=== PATIENT | male | born 1985 | race Two or more races ===

== ENCOUNTER 2017-07-29 09:47 | Inpatient (IN) | payer OTHER ==
[2017-07-29 10:02] VITALS: BMI 17.6
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
[2017-07-29] MEDS ORDERED: ALBUTEROL SO4 2.5/IPRATROPIUM 0.5 INH SOL 3 ML VIAL.NEB. NEB SCH (10:15)
[2017-07-29] MEDS ORDERED: FUROSEMIDE 40 MG/4 ML INJECTABLE VIAL IVPUSH ONE ×2 (10:18→11:06)
[2017-07-29] MEDS ORDERED: CEFTRIAXONE 1 GM in DEXTROSE 5%-WATER - 50 ML IVPB ONE (10:18)
[2017-07-29] MEDS ORDERED: AZITHROMYCIN IVPB 500 MG in DEXTROSE 5%-WATER - 250 ML IVPB ONE (10:18)
[2017-07-29] MEDS ORDERED: FUROSEMIDE 40 MG/4 ML INJECTABLE VIAL ONE ×2 (10:44→11:56)
[2017-07-29] MEDS ORDERED: CEFTRIAXONE 50 ML ONE (10:53)
[2017-07-29 10:54] LABS: VENOUS PH 7.36 (7.32-7.42)
[2017-07-29 10:56] LABS: VENOUS BLOOD GAS HCO3 28.2 meq/L (19-25)
[2017-07-29 10:56] LABS: BASOPHIL 1.3 % (0-2.0); EOSINOPHIL 12.6 % (0-4.5); MCH 28.3 pg (25.7-33.7); MCHC 31.6 g/dl (32.0-35.9); MEAN CELL VOLUME 89.7 fl (80-96); MEAN PLT VOLUME 9.1 fl (7.5-11.1); PLATELET COUNT 132 K/MM3 (134-434); RDW 21.8 % (11.9-15.9); WHITE BLOOD COUNT 5.6 K/mm3 (4.0-10.0)
[2017-07-29] MEDS ORDERED: AZITHROMYCIN IVPB 250 ML IVPB ONE (11:04)
[2017-07-29 11:12] LABS: ALBUMIN 2.8 g/dl (3.4-5.0); ANION GAP 9 (8-16); BILIRUBIN,TOTAL 0.4 mg/dL (0.2-1.0); CALCIUM 8.4 mg/dL (8.5-10.1); CO2 28 mmol/L (21-32); CREATININE 6.4 mg/dL (0.7-1.3); GLUCOSE,RANDOM 91 mg/dL (74-106); SGOT/AST 98 U/L (15-37); SGPT/ALT 68 U/L (12-78); TOT PROT 8.5 g/dl (6.4-8.2)
[2017-07-29 11:15] LABS: ALK PHOS 102 U/L (45-117); CPK 45 IU/L (39-308); TROPONIN I < 0.02 ng/ml (0.00-0.05)
[2017-07-29] MEDS ORDERED: VANCOMYCIN 1,000 MG in DEXTROSE 5%-WATER - 250 ML IVPB ONE (11:38)
[2017-07-29] MEDS ORDERED: VANCOMYCIN 1 GRAM (PRE-DOCKED) 250 ML IVPB ONE ×2 (12:01→14:35)
[2017-07-29] MEDS ORDERED: HEPARIN NA (PORCINE) 5,000 UNITS/ML 1ML VIAL IVPUSH ONE (12:11)
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
[2017-07-29] MEDS ORDERED: ALBUTEROL SO4 0.083% IH SOL 2.5 MG/3 ML VIAL.NEB. NEB PRN (12:39)
--- NOTE | 2017-07-29 12:59 | PN ---
Progress Note, Physician Chief Complaint: ID Full note dictated Dyspneic but afebrile 96.7 - Current Medication List Current Medications: Active Medications Acetaminophen (Tylenol -) 650 mg PO Q4H PRN PRN Reason: FEVER OR PAIN Albuterol Sulfate (Ventolin 0.083% Nebulizer Soln -) 1 amp NEB Q4H PRN PRN Reason: SHORT OF BREATH/WHEEZING Albuterol/Ipratropium (Duoneb -) 1 amp NEB Q6H NIURKA Aspirin (Asa -) 81 mg PO DAILY NIURKA Carvedilol (Coreg -) 25 mg PO BID NIURKA Heparin Sodium (Porcine) (Heparin -) 3,000 unit IVPUSH ONCE ONE Stop: 07/29/17 12:12 Heparin Sodium (Porcine) (Heparin -) 5,000 unit SQ Q8H-IV NIURKA Hydralazine HCl (Apresoline -) 50 mg PO TID NIURKA Isosorbide Mononitrate (Imdur -) 30 mg PO DAILY NIURKA Scopolamine HBr (Transderm-Scop -) 1 patch TD Q72H NIURKA - Objective Vital Signs: Vital Signs Temperature 96.7 F L 07/29/17 09:58 Pulse Rate 80 07/29/17 12:46 Respiratory Rate 26 H 07/29/17 12:46 Blood Pressure 114/84 07/29/17 12:46 O2 Sat by Pulse Oximetry (%) 100 07/29/17 12:46 Constitutional: Yes: Cachectic Cardiovascular: Yes: S1, S2 Respiratory: Yes: Diminished, Rhonchi Gastrointestinal: Yes: Soft, Other (scars) Extremities: Yes: Other (avf right) Edema: No Problem List - Problems (1) Acute respiratory failure with hypoxia Code(s): J96.01 - ACUTE RESPIRATORY FAILURE WITH HYPOXIA (2) Pneumonia Code(s): J18.9 - PNEUMONIA, UNSPECIFIED ORGANISM (3) Sepsis Code(s): A41.9 - SEPSIS, UNSPECIFIED ORGANISM (4) ESRD (end stage renal disease) Code(s): N18.6 - END STAGE RENAL DISEASE Assessment/Plan Laboratory Tests 07/29/17 07/29/17 07/29/17 10:23 10:23 10:50 WBC 5.6 RBC 3.28 L Hgb 9.3 L D Plt Count 132 L D Lactic Acid 0.9 Total Protein 8.5 H Albumin 2.8 L D Assessment Presume sepsis ? Pneumonia RLL ESRD Decubiti Plan Cultures Empiric vancmoycin and Janiya May MD
[2017-07-29] MEDS ORDERED: PIPERACILLIN/TAZOB 2.25 GM 2.25 GM in DEXTROSE 5%-WATER - 50 ML IVPB ONE (13:02)
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
[2017-07-29] MEDS: hydrALAZINE HCL 50 MG TABLET (FP) PO SCH ×2 (15:00→21:52)
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
--- NOTE | 2017-07-29 15:16 | EKG ---
Test Reason : Blood Pressure : / mmHG Vent. Rate : 079 BPM Atrial Rate : 079 BPM P-R Int : 164 ms QRS Dur : 086 ms QT Int : 410 ms P-R-T Axes : 051 104 068 degrees QTc Int : 470 ms NORMAL SINUS RHYTHM POSSIBLE LEFT ATRIAL ENLARGEMENT RIGHTWARD AXIS BORDERLINE ECG WHEN COMPARED WITH ECG OF 19-DEC-2016 09:47, NO SIGNIFICANT CHANGE WAS FOUND Confirmed by DIAMOND WALKER MD ([id number]) on 07/29/2017 3:16:11 PM Referred By: Confirmed By:DIAMOND WALKER MD
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
[2017-07-29] MEDS: PIPERACILLIN/TAZOB 2.25 GM 2.25 GM in DEXTROSE 5%-WATER - 50 ML IVPB SCH ×2 (16:03→22:03)
[2017-07-29] MEDS: ALBUTEROL SO4 2.5/IPRATROPIUM 0.5 INH SOL 3 ML VIAL.NEB. NEB SCH ×2 (18:09→23:15)
[2017-07-29] MEDS: HEPARIN NA (PORCINE) 5,000 UNITS/ML 1ML VIAL SQ SCH (18:20)
[2017-07-29] MEDS: methylPREDNISolone NA SUCC 40 MG/1 ML VIAL IVPB SCH (18:26)
[2017-07-29] MEDS: SCOPOLAMINE HYDROBROMIDE 1 PATCH PATCH.TD72 TD SCH (18:29)
[2017-07-29] MEDS: CALCITRIOL 0.25 MCG CAPSULE (FP) PO SCH (20:32)
[2017-07-29] MEDS: ACETAMINOPHEN 325 MG TABLET (FP) PO PRN (20:32)
[2017-07-29] MEDS: CARVEDILOL 25 MG TABLET (FP) PO SCH (21:52)
[2017-07-29] MEDS ORDERED: PT OWN MED DRAWER 7, Y5N ONE (21:56)
[2017-07-29] MEDS ORDERED: oxyCODONE HCL 5 MG TABLET PO ONE (22:50)
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
[2017-07-30] MEDS: HEPARIN NA (PORCINE) 5,000 UNITS/ML 1ML VIAL SQ SCH ×3 (02:15→17:44)
[2017-07-30] MEDS: hydrALAZINE HCL 50 MG TABLET (FP) PO SCH ×3 (06:14→21:48)
[2017-07-30] MEDS: ALBUTEROL SO4 2.5/IPRATROPIUM 0.5 INH SOL 3 ML VIAL.NEB. NEB SCH ×4 (06:15→23:56)
[2017-07-30 06:27] LABS: BASOPHIL 0.2 % (0-2.0); EOSINOPHIL 0.4 % (0-4.5); MCH 28.9 pg (25.7-33.7); MCHC 31.9 g/dl (32.0-35.9); MEAN CELL VOLUME 90.5 fl (80-96); MEAN PLT VOLUME 10.7 fl (7.5-11.1); NEUTROPHILS 86.1 % (42.8-82.8); PLATELET COUNT 106 K/MM3 (134-434); RDW 21.5 % (11.9-15.9); WHITE BLOOD COUNT 2.8 K/mm3 (4.0-10.0)
[2017-07-30 06:49] LABS: ALBUMIN 2.8 g/dl (3.4-5.0); ANION GAP 11 (8-16); CALCIUM 8.1 mg/dL (8.5-10.1); CO2 27 mmol/L (21-32); GLUCOSE,RANDOM 130 mg/dL (74-106); MAGNESIUM 2.1 mg/dL (1.8-2.4)
[2017-07-30 06:53] LABS: ALK PHOS 105 U/L (45-117); BILIRUBIN,TOTAL 0.7 mg/dL (0.2-1.0); CREATININE 3.9 mg/dL (0.7-1.3); PHOSPHOROUS 5.3 mg/dL (2.5-4.9); SGOT/AST 106 U/L (15-37); SGPT/ALT 104 U/L (12-78); TOT PROT 8.3 g/dl (6.4-8.2)
[2017-07-30 07:16] LABS: PLATELET COMMENT2 NO CLOTTING DETECTED
[2017-07-30 07:17] LABS: ANISOCYTOSIS 2+; MACROCYTOSIS 1+; PLATELET ESTIMATE SLT DECREASED (NORMAL)
--- NOTE | 2017-07-30 07:41 | PN ---
Progress Note, Physician Chief Complaint: ID Whatever the reason he has shown a dramatic improvement since being seen in the ER yesterday. He is alert and in no distress and remains afebrile with no localizing complaints.. Empiric antibiotic with Vanco 1 dose and Zosyn day 1 offered but was unsure of any infection when seen originally. - Current Medication List Current Medications: Active Medications Acetaminophen (Tylenol -) 650 mg PO Q4H PRN PRN Reason: FEVER OR PAIN Last Admin: 07/29/17 20:32 Dose: 650 mg Albuterol Sulfate (Ventolin 0.083% Nebulizer Soln -) 1 amp NEB Q4H PRN PRN Reason: SHORT OF BREATH/WHEEZING Albuterol/Ipratropium (Duoneb -) 1 amp NEB QIDR [facility] Last Admin: 07/30/17 06:15 Dose: 1 amp Aspirin (Asa -) 81 mg PO DAILY [facility] Calcitriol (Rocaltrol -) 0.25 mcg PO TuThSa@1000 [facility] Last Admin: 07/29/17 20:32 Dose: 0.25 mcg Carvedilol (Coreg -) 25 mg PO BID [facility] Last Admin: 07/29/17 21:52 Dose: 25 mg Heparin Sodium (Porcine) (Heparin -) 5,000 unit SQ Q8H-IV [facility] Last Admin: 07/30/17 02:15 Dose: 5,000 unit Hydralazine HCl (Apresoline -) 50 mg PO TID [facility] Last Admin: 07/30/17 06:14 Dose: 50 mg Piperacillin Sod/Tazobactam (Sod 2.25 gm/ Dextrose) 50 mls @ 100 mls/hr IVPB BID [facility] PRN Reason: Protocol Last Admin: 07/29/17 22:03 Dose: 100 mls/hr Isosorbide Mononitrate (Imdur -) 30 mg PO DAILY [facility] Methylprednisolone Sodium Succinate (Solu-Medrol -) 40 mg IVPB DAILY [facility] Last Admin: 07/29/17 18:26 Dose: 40 mg Scopolamine HBr (Transderm-Scop -) 1 patch TD Q72H [facility] Last Admin: 07/29/17 18:29 Dose: 1 patch - Objective Vital Signs: Vital Signs Temperature 98 F 07/30/17 06:00 Pulse Rate 67 07/30/17 06:00 Respiratory Rate 18 07/30/17 06:00 Blood Pressure 155/84 07/30/17 06:00 O2 Sat by Pulse Oximetry (%) 100 07/30/17 06:23 Constitutional: Yes: Thin Neck: Yes: WNL, Supple Cardiovascular: Yes: WNL, Regular Rate and Rhythm, S1, S2. No: Murmur Respiratory: Yes: WNL, Regular, CTA Bilaterally, Rhonchi Gastrointestinal: Yes: WNL, Normal Bowel Sounds, Soft. No: Splenomegaly, Tenderness, Tenderness, Epigastrium Edema: No Labs: CBC, BMP 07/30/17 05:15 07/30/17 05:15 Problem List - Problems (1) Acute respiratory failure with hypoxia Code(s): J96.01 - ACUTE RESPIRATORY FAILURE WITH HYPOXIA (2) Pneumonia Code(s): J18.9 - PNEUMONIA, UNSPECIFIED ORGANISM (3) Sepsis Code(s): A41.9 - SEPSIS, UNSPECIFIED ORGANISM (4) ESRD (end stage renal disease) Code(s): N18.6 - END STAGE RENAL DISEASE Assessment/Plan Laboratory Tests 07/29/17 07/30/17 07/30/17 10:23 05:15 05:15 WBC 5.6 2.8 L D Hgb 9.1 L Hct 28.5 L Plt Count 106 L Total Bilirubin 0.7 D AST 106 H ALT 104 H D Alkaline Phosphatase 105 Total Protein 8.3 H Albumin 2.8 L Assessment Acute respiratory failure much improved ? Sepsis Taking note of low WBC and low platelets This is new and might be related to bacterial infection or viral infection ESRD Paraplegia Asthma Sacral wound decub Plan Check Vanco level this am Continue Zosyn for now Await cultures and decide need for antibiotic after complete Monospot Influenza screen Moniter CBC pancytopenia Note elevated total proteins Will do HIV test though may have been done previously ESR CRP Lalo HANNON
[2017-07-30 08:20] LABS: C-REACTIVE PROTEIN 6.4 MG/DL (0.00-0.3)
[2017-07-30 09:19] LABS: HIV 1 & 2 AB NEGATIVE; HIV 1 AGp24 NEGATIVE
[2017-07-30] MEDS ORDERED: PT OWN MED DRAWER 7, Y5N ONE (09:34)
[2017-07-30] MEDS: PIPERACILLIN/TAZOB 2.25 GM 50 ML IVPB SCH ×2 (09:42→21:48)
[2017-07-30] MEDS: methylPREDNISolone NA SUCC 40 MG/1 ML VIAL IVPB SCH (09:42)
[2017-07-30] MEDS: ISOSORBIDE MONONITRATE 30 MG TAB.SR.24H (FP) PO SCH (09:42)
[2017-07-30] MEDS: CARVEDILOL 25 MG TABLET (FP) PO SCH ×2 (09:43→21:48)
[2017-07-30] MEDS: ASPIRIN 81 MG CHEWABLE TABLETS PO SCH (09:43)
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
[2017-07-30] MEDS ORDERED: EPOETIN ALFA 2,000 UNITS/1 ML VIAL IVPUSH ONE (12:19)
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
[2017-07-30] MEDS ORDERED: HEPARIN NA (PORCINE) 5,000 UNITS/ML 1ML VIAL IVPUSH ONE (12:30)
[2017-07-30] MEDS ORDERED: EPOETIN ALFA 3,000 UNIT, EPOETIN ALFA 2,000 UNIT IVPUSH ONE (12:30)
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
[2017-07-30] MEDS: ACETAMINOPHEN 325 MG TABLET (FP) PO PRN (15:33)
[2017-07-30 15:42] LABS: FERRITIN 1864.8 ng/ml (16.4-293.9)
[2017-07-30] MEDS ORDERED: oxyCODONE HCL 5 MG TABLET PO ONE (17:31)
[2017-07-31 00:06] LABS: HEP B SURFACE AB Reactive (.)
[2017-07-31] MEDS: HEPARIN NA (PORCINE) 5,000 UNITS/ML 1ML VIAL SQ SCH ×3 (01:31→18:45)
[2017-07-31 06:10] LABS: MCH 29.3 pg (25.7-33.7); MEAN CELL VOLUME 91.4 fl (80-96); PLATELET COUNT 137 K/MM3 (134-434); WHITE BLOOD COUNT 5.1 K/mm3 (4.0-10.0)
[2017-07-31] MEDS: hydrALAZINE HCL 50 MG TABLET (FP) PO SCH ×3 (06:13→21:45)
[2017-07-31] MEDS: ALBUTEROL SO4 2.5/IPRATROPIUM 0.5 INH SOL 3 ML VIAL.NEB. NEB SCH ×4 (06:19→23:25)
[2017-07-31 06:31] LABS: ALBUMIN 2.6 g/dl (3.4-5.0); ANION GAP 12 (8-16); CALCIUM 8.2 mg/dL (8.5-10.1); CO2 30 mmol/L (21-32); GLUCOSE,RANDOM 105 mg/dL (74-106)
[2017-07-31 06:36] LABS: ALK PHOS 84 U/L (45-117); BILIRUBIN,TOTAL 0.5 mg/dL (0.2-1.0); CREATININE 3.1 mg/dL (0.7-1.3); SGOT/AST 39 U/L (15-37); SGPT/ALT 67 U/L (12-78); TOT PROT 7.4 g/dl (6.4-8.2)
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
[2017-07-31] MEDS: PIPERACILLIN/TAZOB 2.25 GM 50 ML IVPB SCH ×2 (09:33→21:45)
[2017-07-31] MEDS: ASPIRIN 81 MG CHEWABLE TABLETS PO SCH (09:34)
[2017-07-31] MEDS: methylPREDNISolone NA SUCC 40 MG/1 ML VIAL IVPB SCH (09:34)
[2017-07-31] MEDS: ISOSORBIDE MONONITRATE 30 MG TAB.SR.24H (FP) PO SCH (09:34)
[2017-07-31] MEDS: CALCITRIOL 0.25 MCG CAPSULE (FP) PO SCH (09:34)
[2017-07-31] MEDS: CARVEDILOL 25 MG TABLET (FP) PO SCH ×2 (09:34→21:45)
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
[2017-07-31] MEDS: ACETAMINOPHEN 325 MG TABLET (FP) PO PRN ×2 (11:09→14:46)
--- NOTE | 2017-07-31 12:13 | PN ---
Progress Note (short form) - Note Progress Note: esrd fluid overload anemia s/p hyperkalemia seen at bedside cough, and mild resp work to breathe Current Medications Acetaminophen (Tylenol -) 650 mg PO Q4H PRN PRN Reason: FEVER OR PAIN Last Admin: 07/31/17 11:09 Dose: 650 mg Albuterol Sulfate (Ventolin 0.083% Nebulizer Soln -) 1 amp NEB Q4H PRN PRN Reason: SHORT OF BREATH/WHEEZING Albuterol/Ipratropium (Duoneb -) 1 amp NEB QIDR [facility] Last Admin: 07/31/17 11:27 Dose: 1 amp Aspirin (Asa -) 81 mg PO DAILY [facility] Last Admin: 07/31/17 09:34 Dose: 81 mg Calcitriol (Rocaltrol -) 0.25 mcg PO TuThSa@1000 [facility] Last Admin: 07/31/17 09:34 Dose: 0.25 mcg Carvedilol (Coreg -) 25 mg PO BID [facility] Last Admin: 07/31/17 09:34 Dose: 25 mg Heparin Sodium (Porcine) (Heparin -) 5,000 unit SQ Q8H-IV NIURKA Last Admin: 07/31/17 09:34 Dose: 5,000 unit Hydralazine HCl (Apresoline -) 50 mg PO TID [facility] Last Admin: 07/31/17 06:13 Dose: 50 mg Piperacillin Sod/Tazobactam Sod (Zosyn 2.25gm Ivpb (Pre-Docked)) 50 mls @ 100 mls/hr IVPB BID NIURKA PRN Reason: Protocol Stop: 08/04/17 22:29 Last Admin: 07/31/17 09:33 Dose: 100 mls/hr Isosorbide Mononitrate (Imdur -) 30 mg PO DAILY [facility] Last Admin: 07/31/17 09:34 Dose: 30 mg Methylprednisolone Sodium Succinate (Solu-Medrol -) 40 mg IVPB DAILY [facility] Last Admin: 07/31/17 09:34 Dose: 40 mg Scopolamine HBr (Transderm-Scop -) 1 patch TD Q72H [facility] Last Admin: 07/29/17 18:29 Dose: 1 patch Last Vital Signs Temp Pulse Resp BP Pulse Ox 98.8 F 71 18 130/74 95 07/31/17 11:25 07/31/17 11:30 07/31/17 11:30 07/31/17 11:30 07/31/17 11:27 Lungs rhonchi throughout chest Heart RRR Abd soft nontender Ext no edema CBC, BMP 07/31/17 05:00 esrd resp distress- component of fluid overload, has evidence of consolidation in the right chest, no leukocytosis anemia- sharp drop in h/h, no overt blood loss follow and consider transfusion prbc prn
[2017-07-31 12:14] LABS: MCH 29.1 pg (25.7-33.7); MCHC 31.8 g/dl (32.0-35.9); MEAN CELL VOLUME 91.6 fl (80-96); MEAN PLT VOLUME 9.5 fl (7.5-11.1); PLATELET COUNT 145 K/MM3 (134-434); RDW 21.1 % (11.9-15.9); WHITE BLOOD COUNT 7.1 K/mm3 (4.0-10.0)
[2017-07-31] MEDS ORDERED: oxyCODONE HCL 5 MG TABLET PO ONE (14:18)
--- NOTE | 2017-07-31 16:26 | PN ---
Progress Note (short form) - Note Progress Note: no complaints Vital Signs Period Temp Pulse Resp BP Sys/Patino Pulse Ox Last 24 Hr 98.4 F-99.4 F 68-88 16-22 112-149/69-93 94-99 cor-rrr lungs decreased bs right base abd soft,nt CBC, BMP 07/31/17 11:40 07/31/17 05:00 Microbiology 07/29/17 11:20 Blood - Peripheral Venous Blood Culture - Preliminary NO GROWTH OBTAINED AFTER 48 HOURS, INCUBATION TO CONTINUE FOR 3 DAYS. 07/29/17 11:20 Blood - Peripheral Venous Blood Culture - Preliminary NO GROWTH OBTAINED AFTER 48 HOURS, INCUBATION TO CONTINUE FOR 3 DAYS. 07/30/17 19:00 Nasopharyngeal Swab Influenza Types A,B Antigen (KAYLIE) - Final 07/30/17 19:00 Nasopharyngeal Swab - Final a/p pneumonia RLL esrd/hd paraplegia anemia continue zosyn plan 7 days day #2
[2017-07-31 18:57] LABS: MCH 29.2 pg (25.7-33.7); MCHC 31.9 g/dl (32.0-35.9); MEAN CELL VOLUME 91.5 fl (80-96); MEAN PLT VOLUME 9.4 fl (7.5-11.1); PLATELET COUNT 150 K/MM3 (134-434); RDW 21.4 % (11.9-15.9); WHITE BLOOD COUNT 4.7 K/mm3 (4.0-10.0)
[2017-07-31 19:44] LABS: ANISOCYTOSIS 2+; MACROCYTOSIS 1+; PLATELET ESTIMATE ADEQUATE (NORMAL); POLYCHROMASIA 1+
[2017-08-01] MEDS: HEPARIN NA (PORCINE) 5,000 UNITS/ML 1ML VIAL SQ SCH ×2 (01:26→10:06)
[2017-08-01] MEDS: ALBUTEROL SO4 2.5/IPRATROPIUM 0.5 INH SOL 3 ML VIAL.NEB. NEB SCH ×3 (05:55→18:05)
[2017-08-01] MEDS: hydrALAZINE HCL 50 MG TABLET (FP) PO SCH ×3 (06:20→21:04)
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
[2017-08-01 08:26] LABS: MCH 28.8 pg (25.7-33.7); MCHC 31.2 g/dl (32.0-35.9); MEAN CELL VOLUME 92.6 fl (80-96); MEAN PLT VOLUME 9.1 fl (7.5-11.1); PLATELET COUNT 152 K/MM3 (134-434); RDW 21.7 % (11.9-15.9); WHITE BLOOD COUNT 5.9 K/mm3 (4.0-10.0)
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
[2017-08-01 09:04] LABS: ANION GAP 10 (8-16); CALCIUM 8.5 mg/dL (8.5-10.1); CO2 31 mmol/L (21-32); CREATININE 4.2 mg/dL (0.7-1.3); GLUCOSE,RANDOM 91 mg/dL (74-106)
[2017-08-01] MEDS: ISOSORBIDE MONONITRATE 30 MG TAB.SR.24H (FP) PO SCH (10:06)
[2017-08-01] MEDS: PIPERACILLIN/TAZOB 2.25 GM 50 ML IVPB SCH ×2 (10:06→21:04)
[2017-08-01] MEDS: methylPREDNISolone NA SUCC 40 MG/1 ML VIAL IVPB SCH (10:06)
[2017-08-01] MEDS: CARVEDILOL 25 MG TABLET (FP) PO SCH ×2 (10:06→21:04)
[2017-08-01 10:07] LABS: SERUM IRON 80 ug/dL (38-169); TOTAL IRON BINDING CAPACITY 180 ug/dL (250-450); UIBC 100 ug/dL (111-343)
[2017-08-01] MEDS: ASPIRIN 81 MG CHEWABLE TABLETS PO SCH (10:07)
[2017-08-01] MEDS: ACETAMINOPHEN 325 MG TABLET (FP) PO PRN ×2 (10:59→22:40)
[2017-08-01] MEDS: oxyCODONE HCL 5 MG TABLET PO PRN ×2 (10:59→22:40)
--- NOTE | 2017-08-01 14:32 | PN ---
Progress Note (short form) - Note Progress Note: esrd fluid overload anemia s/p hyperkalemia seen at bedside feels better Current Medications Acetaminophen (Tylenol -) 650 mg PO Q4H PRN PRN Reason: FEVER OR PAIN Last Admin: 08/01/17 10:59 Dose: 650 mg Albuterol Sulfate (Ventolin 0.083% Nebulizer Soln -) 1 amp NEB Q4H PRN PRN Reason: SHORT OF BREATH/WHEEZING Albuterol/Ipratropium (Duoneb -) 1 amp NEB QIDR NIURKA Last Admin: 08/01/17 11:44 Dose: 1 amp Aspirin (Asa -) 81 mg PO DAILY [facility] Last Admin: 08/01/17 10:07 Dose: 81 mg Calcitriol (Rocaltrol -) 0.25 mcg PO TuThSa@1000 [facility] Last Admin: 07/31/17 09:34 Dose: 0.25 mcg Carvedilol (Coreg -) 25 mg PO BID [facility] Last Admin: 08/01/17 10:06 Dose: 25 mg Heparin Sodium (Porcine) (Heparin -) 5,000 unit SQ Q8H-IV [facility]URKA Last Admin: 08/01/17 10:06 Dose: 5,000 unit Hydralazine HCl (Apresoline -) 50 mg PO TID [facility] Last Admin: 08/01/17 06:20 Dose: 50 mg Piperacillin Sod/Tazobactam Sod (Zosyn 2.25gm Ivpb (Pre-Docked)) 50 mls @ 100 mls/hr IVPB BID NIURKA PRN Reason: Protocol Stop: 08/04/17 22:29 Last Admin: 08/01/17 10:06 Dose: 100 mls/hr Isosorbide Mononitrate (Imdur -) 30 mg PO DAILY [facility] Last Admin: 08/01/17 10:06 Dose: 30 mg Methylprednisolone Sodium Succinate (Solu-Medrol -) 40 mg IVPB DAILY [facility] Last Admin: 08/01/17 10:06 Dose: 40 mg Oxycodone HCl (Roxicodone -) 5 mg PO Q4H PRN PRN Reason: PAIN Last Admin: 08/01/17 10:59 Dose: 5 mg Scopolamine HBr (Transderm-Scop -) 1 patch TD Q72H [facility] Last Admin: 07/29/17 18:29 Dose: 1 patch Last Vital Signs Temp Pulse Resp BP Pulse Ox 98.5 F 86 18 148/88 95 08/01/17 10:00 08/01/17 11:44 08/01/17 10:00 08/01/17 10:00 08/01/17 11:44 Lungs rhonchi throughout chest Heart RRR Abd soft nontender Ext no edema CBC, BMP 08/01/17 08:10 08/01/17 08:10 esrd s/p resp distress- component of fluid overload, has evidence of consolidation in the right chest, no leukocytosis anemia- rll pna/effusion Plan- HD on (his regula maintenance schedule)
[2017-08-01] MEDS: SCOPOLAMINE HYDROBROMIDE 1 PATCH PATCH.TD72 TD SCH (14:41)
[2017-08-01 21:14] LABS: BASOPHIL 0.5 % (0-2.0); EOSINOPHIL 0.1 % (0-4.5); MCH 29.6 pg (25.7-33.7); MCHC 32.2 g/dl (32.0-35.9); MEAN CELL VOLUME 91.9 fl (80-96); MEAN PLT VOLUME 9.6 fl (7.5-11.1); PLATELET COUNT 165 K/MM3 (134-434); RDW 21.5 % (11.9-15.9); WHITE BLOOD COUNT 5.5 K/mm3 (4.0-10.0)
[2017-08-01 21:55] LABS: ANISOCYTOSIS 2+; MACROCYTOSIS 1+; PLATELET ESTIMATE ADEQUATE (NORMAL); POLYCHROMASIA 1+
[2017-08-02] MEDS: HEPARIN NA (PORCINE) 5,000 UNITS/ML 1ML VIAL SQ SCH ×3 (01:32→17:49)
[2017-08-02] MEDS: hydrALAZINE HCL 50 MG TABLET (FP) PO SCH ×3 (05:35→21:11)
[2017-08-02 05:59] LABS: MCH 29.8 pg (25.7-33.7); MCHC 32.4 g/dl (32.0-35.9); MEAN CELL VOLUME 91.9 fl (80-96); MEAN PLT VOLUME 9.6 fl (7.5-11.1); PLATELET COUNT 165 K/MM3 (134-434); RDW 21.5 % (11.9-15.9); WHITE BLOOD COUNT 5.9 K/mm3 (4.0-10.0)
[2017-08-02 06:29] LABS: ANION GAP 12 (8-16); CALCIUM 8.1 mg/dL (8.5-10.1); CO2 29 mmol/L (21-32); CREATININE 5.4 mg/dL (0.7-1.3); GLUCOSE,RANDOM 92 mg/dL (74-106); MAGNESIUM 1.9 mg/dL (1.8-2.4); PHOSPHOROUS 4.6 mg/dL (2.5-4.9)
[2017-08-02] MEDS: ALBUTEROL SO4 2.5/IPRATROPIUM 0.5 INH SOL 3 ML VIAL.NEB. NEB SCH ×4 (06:33→17:37)
--- NOTE | 2017-08-02 07:56 | PN ---
Progress Note, Physician Chief Complaint: ID Moist couph and congestion Other then that stable NO fever Zosyn - Current Medication List Current Medications: Active Medications Acetaminophen (Tylenol -) 650 mg PO Q4H PRN PRN Reason: FEVER OR PAIN Last Admin: 08/01/17 22:40 Dose: 650 mg Albuterol Sulfate (Ventolin 0.083% Nebulizer Soln -) 1 amp NEB Q4H PRN PRN Reason: SHORT OF BREATH/WHEEZING Albuterol/Ipratropium (Duoneb -) 1 amp NEB QIDR [facility]URKA Last Admin: 08/02/17 06:33 Dose: Not Given Aspirin (Asa -) 81 mg PO DAILY [facility] Last Admin: 08/01/17 10:07 Dose: 81 mg Calcitriol (Rocaltrol -) 0.25 mcg PO TuThSa@1000 [facility] Last Admin: 07/31/17 09:34 Dose: 0.25 mcg Carvedilol (Coreg -) 25 mg PO BID [facility] Last Admin: 08/01/17 21:04 Dose: 25 mg Heparin Sodium (Porcine) (Heparin -) 5,000 unit SQ Q8H-IV [facility]URKA Last Admin: 08/02/17 01:32 Dose: 5,000 unit Hydralazine HCl (Apresoline -) 50 mg PO TID [facility] Last Admin: 08/02/17 05:35 Dose: 50 mg Piperacillin Sod/Tazobactam Sod (Zosyn 2.25gm Ivpb (Pre-Docked)) 50 mls @ 100 mls/hr IVPB BID NIURKA PRN Reason: Protocol Stop: 08/04/17 22:29 Last Admin: 08/01/17 21:04 Dose: 100 mls/hr Isosorbide Mononitrate (Imdur -) 30 mg PO DAILY [facility] Last Admin: 08/01/17 10:06 Dose: 30 mg Methylprednisolone Sodium Succinate (Solu-Medrol -) 40 mg IVPB DAILY [facility] Last Admin: 08/01/17 10:06 Dose: 40 mg Oxycodone HCl (Roxicodone -) 5 mg PO Q4H PRN PRN Reason: PAIN Last Admin: 08/01/17 22:40 Dose: 5 mg Scopolamine HBr (Transderm-Scop -) 1 patch TD Q72H [facility] Last Admin: 08/01/17 14:41 Dose: 1 patch - Objective Vital Signs: Vital Signs Temperature 98.5 F 08/02/17 06:00 Pulse Rate 70 08/02/17 06:00 Respiratory Rate 20 08/02/17 06:00 Blood Pressure 119/71 08/02/17 06:00 O2 Sat by Pulse Oximetry (%) 95 08/01/17 20:45 Constitutional: Yes: Cachectic Neck: Yes: WNL, Supple Cardiovascular: Yes: Regular Rate and Rhythm, S1, S2 Respiratory: Yes: WNL, Regular, CTA Bilaterally Gastrointestinal: Yes: WNL, Normal Bowel Sounds, Soft Edema: No Labs: CBC, BMP 08/02/17 05:00 08/02/17 05:00 Problem List - Problems (1) Acute respiratory failure with hypoxia Code(s): J96.01 - ACUTE RESPIRATORY FAILURE WITH HYPOXIA (2) Pneumonia Code(s): J18.9 - PNEUMONIA, UNSPECIFIED ORGANISM (3) Sepsis Code(s): A41.9 - SEPSIS, UNSPECIFIED ORGANISM (4) ESRD (end stage renal disease) Code(s): N18.6 - END STAGE RENAL DISEASE Assessment/Plan Microbiology 07/30/17 19:00 Nasopharyngeal Swab Influenza Types A,B Antigen (KAYLIE) - Final 07/30/17 19:00 Nasopharyngeal Swab - Final 07/29/17 11:20 Blood - Peripheral Venous Blood Culture - Preliminary NO GROWTH OBTAINED AFTER 72 HOURS, INCUBATION TO CONTINUE FOR 2 DAYS. 07/29/17 11:20 Blood - Peripheral Venous Blood Culture - Preliminary NO GROWTH OBTAINED AFTER 72 HOURS, INCUBATION TO CONTINUE FOR 2 DAYS. Laboratory Tests 07/30/17 08/02/17 08:30 05:00 WBC 5.9 Hgb 8.8 L Hct 27.2 L Plt Count 165 HIV 1&2 Antibody Screen Negative Assessment Sepsis resolved PNA effusion ESRD Paraplegia Plan Patient had rapid improvement overnight with antibiotics Switch po Levofloxacin 250 q [address] chest Lalo HANNON
[2017-08-02] MEDS ORDERED: LEVOFLOXACIN 250 MG TABLET (FP) PO SCH (09:00)
[2017-08-02] MEDS ORDERED: PT OWN MED DRAWER 7, Y5N ONE (09:06)
[2017-08-02] MEDS: ASPIRIN 81 MG CHEWABLE TABLETS PO SCH (09:08)
[2017-08-02] MEDS: methylPREDNISolone NA SUCC 40 MG/1 ML VIAL IVPB SCH (09:09)
[2017-08-02] MEDS: CARVEDILOL 25 MG TABLET (FP) PO SCH ×2 (09:09→21:11)
[2017-08-02] MEDS: ISOSORBIDE MONONITRATE 30 MG TAB.SR.24H (FP) PO SCH (09:09)
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
[2017-08-02] MEDS: oxyCODONE HCL 5 MG TABLET PO PRN (20:40)
[2017-08-02] MEDS: ACETAMINOPHEN 325 MG TABLET (FP) PO PRN (20:41)
[2017-08-03] MEDS: ALBUTEROL SO4 2.5/IPRATROPIUM 0.5 INH SOL 3 ML VIAL.NEB. NEB SCH ×4 (00:46→17:10)
[2017-08-03] MEDS: HEPARIN NA (PORCINE) 5,000 UNITS/ML 1ML VIAL SQ SCH ×4 (02:00→19:00)
[2017-08-03] MEDS: hydrALAZINE HCL 50 MG TABLET (FP) PO SCH ×2 (05:21→15:18)
[2017-08-03 06:27] LABS: MCHC 32.4 g/dl (32.0-35.9); MEAN CELL VOLUME 92.6 fl (80-96); MEAN PLT VOLUME 9.6 fl (7.5-11.1); PLATELET COUNT 174 K/MM3 (134-434); RDW 21.6 % (11.9-15.9); WHITE BLOOD COUNT 5.9 K/mm3 (4.0-10.0)
[2017-08-03 06:55] LABS: ALBUMIN 2.8 g/dl (3.4-5.0); ANION GAP 13 (8-16); CALCIUM 7.6 mg/dL (8.5-10.1); CO2 27 mmol/L (21-32); CREATININE 6.7 mg/dL (0.7-1.3); GLUCOSE,RANDOM 98 mg/dL (74-106); MAGNESIUM 2.1 mg/dL (1.8-2.4); PHOSPHOROUS 5.7 mg/dL (2.5-4.9)
[2017-08-03] MEDS: ASPIRIN 81 MG CHEWABLE TABLETS PO SCH (10:05)
[2017-08-03] MEDS: CALCITRIOL 0.25 MCG CAPSULE (FP) PO SCH (10:05)
[2017-08-03] MEDS: methylPREDNISolone NA SUCC 40 MG/1 ML VIAL IVPB SCH (10:06)
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
[2017-08-03] MEDS ORDERED: EPOETIN ALFA 3,000 UNIT, EPOETIN ALFA 2,000 UNIT IVPUSH ONE (13:15)
[2017-08-03] MEDS ORDERED: HEPARIN NA (PORCINE) 5,000 UNITS/ML 1ML VIAL IVPUSH ONE (13:23)
[2017-08-03] MEDS ORDERED: EPOETIN ALFA 2,000 UNITS/1 ML VIAL IVPUSH ONE (13:23)
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
[2017-08-03] MEDS: CARVEDILOL 25 MG TABLET (FP) PO SCH (15:17)
[2017-08-03] MEDS: ISOSORBIDE MONONITRATE 30 MG TAB.SR.24H (FP) PO SCH (15:17)
[2017-08-03 15:40] LABS: CREATININE 2.1 mg/dL (0.7-1.3)
[2017-08-03 15:48] VITALS: TEMP 99.3
[2017-08-03] MEDS: oxyCODONE HCL 5 MG TABLET PO PRN (17:13)
[2017-08-03] MEDS: ACETAMINOPHEN 325 MG TABLET (FP) PO PRN (17:14)
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
[2017-08-03 20:50] VITALS: BP 136/75; PULSE 75
[2017-08-11 09:19] LABS: CALCIUM 8.3
== END 2017-08-03 20:55 | disposition home or self-care (01) | DRG 133 ==
LOC: JER 09:47 → JERBED 11:45 → J2W 17:15
PROVIDERS: ADMIT Internal Medicine; ATTEND Internal Medicine
PROC: 5A1D60Z (ICD-10-PCS; principal; 2017-07-29)
PROC: 5A0955Z Assistance with Respiratory Ventilation, Greater than 96 Consecutive Hours (ICD-10-PCS; 2017-07-29)
DX: J96.01 Acute respiratory failure with hypoxia (principal); D64.9 Anemia, unspecified; J45.909 Unspecified asthma, uncomplicated; E78.00 Pure hypercholesterolemia, unspecified; G82.20 Paraplegia, unspecified; R06.82 Tachypnea, not elsewhere classified; R68.0 Hypothermia, not associated with low environmental temperature; N20.0 Calculus of kidney; J90 Pleural effusion, not elsewhere classified; E87.5 Hyperkalemia; G62.9 Polyneuropathy, unspecified; J98.6 Disorders of diaphragm; J18.9 Pneumonia, unspecified organism; E87.70 Fluid overload, unspecified; D62 Acute posthemorrhagic anemia; D63.1 Anemia in chronic kidney disease; I27.2 Other secondary pulmonary hypertension; L89.312 Pressure ulcer of right buttock, stage 2; R74.0 Nonspecific elevation of levels of transaminase and lactic acid dehydrogenase [LDH]; I13.2 Hypertensive heart and chronic kidney disease with heart failure and with stage 5 chronic kidney disease, or end stage renal disease; I50.21 Acute systolic (congestive) heart failure; D61.818 Other pancytopenia; Z87.828 Personal history of other (healed) physical injury and trauma; Z90.5 Acquired absence of kidney; Z99.2 Dependence on renal dialysis; Z87.891 Personal history of nicotine dependence
CPT/HCPCS: 36415; 71010-TC; 80048; 80053; 82040; 82310; 82565; 82728; 82803; 83540; 83550; 83605; 83735; 83880; 83970; 84100; 84466; 84484; 84520; 85025; 85027; 85651; 86140; 86308; 86704; 86706; 86708; 86803; 86850; 86900; 86901; 87040; 87070; 87205; 87340; 87389; 87804; 93005; 93010; 94640; 94660; 97161-GP; 99284-25; G0480; J0885; J1644

== ENCOUNTER 2017-08-23 21:07 | Inpatient (IN) | payer OTHER ==
[2017-08-23] MEDS ORDERED: ALBUTEROL SO4 2.5/IPRATROPIUM 0.5 INH SOL 3 ML VIAL.NEB. NEB ONE ×2 (21:22→21:26)
[2017-08-23 21:23] VITALS: BMI 17.1
[2017-08-23 21:54] LABS: BASOPHIL 0.7 % (0-2.0); EOSINOPHIL 6.2 % (0-4.5); MCH 30.3 pg (25.7-33.7); MEAN CELL VOLUME 94.9 fl (80-96); MEAN PLT VOLUME 9.1 fl (7.5-11.1); NEUTROPHILS 77.1 % (42.8-82.8); PLATELET COUNT 116 K/MM3 (134-434); RDW 21.1 % (11.9-15.9); WHITE BLOOD COUNT 7.5 K/mm3 (4.0-10.0)
[2017-08-23 22:14] LABS: INR 1.14 (0.82-1.09); PROTHROMBIN TIME (PATIENT) 12.5 SEC (9.98-11.88)
[2017-08-23 22:42] LABS: ALBUMIN 3.2 g/dl (3.4-5.0); ALK PHOS 96 U/L (45-117); ANION GAP 12 (8-16); BILIRUBIN,TOTAL 0.4 mg/dL (0.2-1.0); CALCIUM 8.7 mg/dL (8.5-10.1); CO2 27 mmol/L (21-32); CREATININE 7.3 mg/dL (0.7-1.3); GLUCOSE,RANDOM 84 mg/dL (74-106); SGOT/AST 41 U/L (15-37); SGPT/ALT 99 U/L (12-78); TOT PROT 7.5 g/dl (6.4-8.2)
[2017-08-23 22:46] LABS: PLATELET ESTIMATE DECREASED (NORMAL)
[2017-08-23 22:47] LABS: ANISOCYTOSIS 2+; HYPOCHROMIA 1+
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
[2017-08-24] MEDS: HEPARIN NA (PORCINE) 5,000 UNITS/ML 1ML VIAL SQ SCH ×3 (02:44→17:58)
[2017-08-24] MEDS: hydrALAZINE HCL 50 MG TABLET (FP) PO SCH ×3 (05:21→21:23)
[2017-08-24] MEDS ORDERED: VANCOMYCIN 1 GRAM (PRE-DOCKED) 1,000 MG/250 ML BAG IVPB ONE (05:53)
[2017-08-24 06:12] LABS: BASOPHIL 0.4 % (0-2.0); EOSINOPHIL 4.8 % (0-4.5); MCH 30.9 pg (25.7-33.7); MCHC 32.2 g/dl (32.0-35.9); MEAN PLT VOLUME 9.2 fl (7.5-11.1); NEUTROPHILS 82.6 % (42.8-82.8); PLATELET COUNT 141 K/MM3 (134-434); WHITE BLOOD COUNT 7.1 K/mm3 (4.0-10.0)
[2017-08-24] MEDS ORDERED: VANCOMYCIN 1,000 MG in DEXTROSE 5%-WATER - 250 ML IVPB ONE (06:15)
[2017-08-24 06:40] LABS: ALBUMIN 3.3 g/dl (3.4-5.0); ANION GAP 13 (8-16); CALCIUM 8.6 mg/dL (8.5-10.1); CO2 29 mmol/L (21-32); GLUCOSE,RANDOM 81 mg/dL (74-106); SGOT/AST 36 U/L (15-37); SGPT/ALT 92 U/L (12-78)
[2017-08-24 06:42] LABS: ALK PHOS 96 U/L (45-117); BILIRUBIN,TOTAL 0.6 mg/dL (0.2-1.0); TOT PROT 7.5 g/dl (6.4-8.2)
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
[2017-08-24] MEDS ORDERED: PIPERACILLIN/TAZOB 3.375 GM/50 ML PRE-DOCKED IVPB SCH (10:00)
[2017-08-24] MEDS ORDERED: PIPERACILLIN/TAZOB 3.375 GM/50 ML PRE-DOCKED IVPB ONE (10:10)
[2017-08-24] MEDS: ISOSORBIDE MONONITRATE 30 MG TAB.SR.24H (FP) PO SCH (10:12)
[2017-08-24] MEDS: CARVEDILOL 25 MG TABLET (FP) PO SCH ×2 (10:12→21:23)
[2017-08-24] MEDS: MUPIROCIN 2% TOPICAL OINTMENT FOR DECOLONIZATION NS SCH ×2 (10:13→21:24)
[2017-08-24] MEDS: ACETAMINOPHEN 325 MG TABLET (FP) PO PRN ×2 (10:25→17:57)
[2017-08-24] MEDS: oxyCODONE HCL 5 MG TABLET PO PRN ×2 (10:26→17:57)
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
--- NOTE | 2017-08-24 16:06 | PN ---
Progress Note (short form) - Note Progress Note: ID Consult dictated RLL HCAP ? Parapneumonic effusion ESRD Pending cultures empiric zosyn/ vancomycin, adjusted for ESRD
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
--- NOTE | 2017-08-24 17:13 | CONS ---
INFECTIOUS DISEASE CONSULTATION DATE OF CONSULTATION: DATE OF DICTATION: 08/24/2017 HISTORY OF PRESENT ILLNESS: The patient is a 32-year-old male with history of paraplegia, end-stage renal disease on hemodialysis, evaluated for pneumonia. The patient was recently hospitalized at [facility] after presenting with shortness of breath. At that time, he was found to have a right lower lobe infiltrate. He was empirically treated with Zosyn and has been switched over to Levaquin. He now returns with recurrent shortness of breath over the past 2 days. A chest x-ray shows a dense consolidation in the right lower lobe. He was admitted to the ICU. His course was complicated by fever. He was empirically treated with vancomycin and Zosyn. A bedside sonogram was performed with a towards thoracentesis. However, an insufficient amount of pleural fluid was noted. The thoracentesis was not performed. He denies any pleuritic-type chest pain. He denies any hemoptysis. PAST MEDICAL HISTORY: Positive for end-stage renal disease on hemodialysis, paraplegia. ALLERGIES: No known allergies. SURGERIES: Status post fistula and nephrectomy. MEDICATIONS: Include Tylenol, Coreg, Apresoline, Imdur, Ecotrin. SOCIAL HISTORY: He resides in the community. He is a nonsmoker. HIV test performed last month was negative. LABORATORY DATA: White count is 7.1, hematocrit 34.4, platelet count 141. BUN 33, creatinine 5.0. Cultures are pending. PHYSICAL EXAMINATION: General: He is awake and alert. He is mildly dyspneic on Ventimask. Vital Signs: Temperature 101.1, T-max 101.5. Blood pressure 97/55; pulse 82, regular; respirations 20 per minute. HEENT: Sclerae anicteric. Heart: Sounds S1, S2. Lungs: Rhonchi at the bases bilaterally with some crepitations at the [id number]-right base. Abdomen: Soft, with a large healed surgical scar, midline. Extremities: Negative for edema. Positive paraplegia. IMPRESSION: 1. Healthcare-acquired right lower lobe pneumonia. 2. Possible sepsis secondary to pneumonia. 3. End-stage renal disease on hemodialysis. PLAN: Obtain CAT scan of the chest, sputum culture. Would consider diagnostic/therapy thoracentesis if significant amount of pleural fluid present. Empiric antibiotic coverage for healthcare-acquired pneumonia with vancomycin and Zosyn adjusted for renal failure. ICU monitoring. Will follow. Thank you for the kind referral. KACIE RYAN M.D. [id number]
[2017-08-24] MEDS: PIPERACILLIN/TAZOB 2.25 GM 50 ML IVPB SCH (17:56)
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
[2017-08-24] MEDS: CHLORHEXIDINE GLUCONATE 4% CLEANSER FOR DECOLONIZATION TP SCH (21:25)
[2017-08-25] MEDS: HEPARIN NA (PORCINE) 5,000 UNITS/ML 1ML VIAL SQ SCH ×3 (01:24→17:38)
[2017-08-25] MEDS: PIPERACILLIN/TAZOB 2.25 GM 50 ML IVPB SCH ×3 (01:24→17:39)
[2017-08-25 06:14] LABS: MCH 30.7 pg (25.7-33.7); MCHC 31.5 g/dl (32.0-35.9); MEAN CELL VOLUME 97.5 fl (80-96); MEAN PLT VOLUME 9.3 fl (7.5-11.1); PLATELET COUNT 117 K/MM3 (134-434); RDW 21.3 % (11.9-15.9); WHITE BLOOD COUNT 5.9 K/mm3 (4.0-10.0)
[2017-08-25] MEDS: hydrALAZINE HCL 50 MG TABLET (FP) PO SCH ×3 (06:22→21:25)
[2017-08-25 06:50] LABS: ANION GAP 9 (8-16); CALCIUM 8.1 mg/dL (8.5-10.1); CO2 32 mmol/L (21-32); CREATININE 6.7 mg/dL (0.7-1.3); GLUCOSE,RANDOM 82 mg/dL (74-106); MAGNESIUM 2.5 mg/dL (1.8-2.4); PHOSPHOROUS 6.3 mg/dL (2.5-4.9)
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
[2017-08-25] MEDS: ALBUTEROL SO4 2.5/IPRATROPIUM 0.5 INH SOL 3 ML VIAL.NEB. NEB PRN ×2 (09:24→17:27)
[2017-08-25] MEDS: MUPIROCIN 2% TOPICAL OINTMENT FOR DECOLONIZATION NS SCH ×2 (09:44→21:18)
[2017-08-25] MEDS: CARVEDILOL 25 MG TABLET (FP) PO SCH ×2 (10:00→21:18)
[2017-08-25] MEDS ORDERED: EPOETIN ALFA 2,000 UNITS/1 ML VIAL IVPUSH ONE (10:30)
--- NOTE | 2017-08-25 10:44 | PN ---
Progress Note, Physician History of Present Illness: Awake, alert Appears more comfortable today Mildly dyspneic on VM Temps down afebrile Receiving hemodialysis CT findings noted - Current Medication List Current Medications: Active Medications Acetaminophen (Tylenol -) 325 mg PO Q4H PRN PRN Reason: PAIN Stop: 08/27/17 10:16 Last Admin: 08/24/17 17:57 Dose: 325 mg Albuterol/Ipratropium (Duoneb -) 1 amp NEB Q6H PRN PRN Reason: SHORTNESS OF BREATH Last Admin: 08/25/17 09:24 Dose: 1 amp Aspirin (Ecotrin -) 81 mg PO DAILY [facility] Carvedilol (Coreg -) 25 mg PO BID [facility] Last Admin: 08/24/17 21:23 Dose: 25 mg Chlorhexidine Gluconate (Hibiclens For Decolonization -) 1 applic TP HS [facility] Last Admin: 08/24/17 21:25 Dose: 1 applic Heparin Sodium (Porcine) (Heparin -) 5,000 unit SQ Q8H-IV [facility] Last Admin: 08/25/17 09:55 Dose: 5,000 unit Hydralazine HCl (Apresoline -) 50 mg PO TID [facility] Last Admin: 08/25/17 06:22 Dose: Not Given Piperacillin Sod/Tazobactam Sod (Zosyn 2.25gm Ivpb (Pre-Docked)) 50 mls @ 100 mls/hr IVPB Q8H-IV [facility] PRN Reason: Protocol Last Admin: 08/25/17 09:43 Dose: 100 mls/hr Isosorbide Mononitrate (Imdur -) 30 mg PO DAILY [facility] Last Admin: 08/24/17 10:12 Dose: 30 mg Mupirocin (Bactroban Ointment (For Decolonization) -) 1 applic NS BID [facility] Stop: 08/29/17 09:59 Last Admin: 08/25/17 09:44 Dose: 1 applic Oxycodone HCl (Roxicodone -) 5 mg PO Q4H PRN PRN Reason: PAIN Last Admin: 08/24/17 17:57 Dose: 5 mg - Objective Vital Signs: Vital Signs Temperature 98.0 F 08/25/17 10:00 Pulse Rate 70 08/25/17 10:20 Respiratory Rate 18 08/25/17 10:20 Blood Pressure 100/57 10/11/17 10:20 O2 Sat by Pulse Oximetry (%) 95 08/25/17 08:00 Constitutional: Yes: No Distress, Cachectic Eyes: Yes: Conjunctiva Clear Cardiovascular: Yes: Regular Rate and Rhythm, S1, S2 Respiratory: Yes: Diminished Gastrointestinal: Yes: Normal Bowel Sounds, Soft. No: Tenderness Edema: No Labs: CBC, BMP 08/25/17 05:00 08/25/17 05:00 INR, PTT INR 1.14 (0.82-1.09) 08/23/17 21:40 Assessment/Plan HCAP ESRD Paraplegia Await c/s Continue zosyn Vancomycin level theraputic
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
[2017-08-25] MEDS: ACETAMINOPHEN 325 MG TABLET (FP) PO PRN ×2 (13:41→21:24)
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
[2017-08-25] MEDS: oxyCODONE HCL 5 MG TABLET PO PRN ×2 (13:42→21:23)
[2017-08-25] MEDS: ASPIRIN COATED 81 MG TABLET.EC PO SCH (15:30)
[2017-08-25] MEDS: ISOSORBIDE MONONITRATE 30 MG TAB.SR.24H (FP) PO SCH (15:30)
[2017-08-25] MEDS ORDERED: ACETAMINOPHEN 325 MG TABLET (FP) PO ONE (15:34)
[2017-08-25] MEDS: CHLORHEXIDINE GLUCONATE 4% CLEANSER FOR DECOLONIZATION TP SCH (21:18)
[2017-08-26] MEDS: PIPERACILLIN/TAZOB 2.25 GM 50 ML IVPB SCH ×3 (02:48→17:33)
[2017-08-26] MEDS: HEPARIN NA (PORCINE) 5,000 UNITS/ML 1ML VIAL SQ SCH ×3 (02:48→17:41)
[2017-08-26 06:07] LABS: BASOPHIL 0.7 % (0-2.0); EOSINOPHIL 10.5 % (0-4.5); MCHC 31.8 g/dl (32.0-35.9); MEAN CELL VOLUME 97.5 fl (80-96); NEUTROPHILS 66.9 % (42.8-82.8); RDW 20.6 % (11.9-15.9); WHITE BLOOD COUNT 5.9 K/mm3 (4.0-10.0)
[2017-08-26] MEDS: ALBUTEROL SO4 2.5/IPRATROPIUM 0.5 INH SOL 3 ML VIAL.NEB. NEB PRN ×2 (06:35→11:15)
[2017-08-26] MEDS: hydrALAZINE HCL 50 MG TABLET (FP) PO SCH ×3 (06:37→21:03)
[2017-08-26 06:38] LABS: ALBUMIN 2.8 g/dl (3.4-5.0); ALK PHOS 86 U/L (45-117); ANION GAP 10 (8-16); BILIRUBIN,TOTAL 0.5 mg/dL (0.2-1.0); CALCIUM 7.9 mg/dL (8.5-10.1); CO2 34 mmol/L (21-32); CREATININE 4.3 mg/dL (0.7-1.3); GLUCOSE,RANDOM 91 mg/dL (74-106); PHOSPHOROUS 4.4 mg/dL (2.5-4.9); SGPT/ALT 51 U/L (12-78); TOT PROT 7.2 g/dl (6.4-8.2)
[2017-08-26 06:59] LABS: MAGNESIUM 2.3 mg/dL (1.8-2.4); SGOT/AST 31 U/L (15-37)
[2017-08-26 08:19] LABS: MEAN PLT VOLUME 9.8 fl (7.5-11.1); PLATELET COMMENT2 FEW LARGE PLTS; PLATELET COUNT 96 K/MM3 (134-434); PLATELET ESTIMATE DECREASED (NORMAL)
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
[2017-08-26] MEDS: oxyCODONE HCL 5 MG TABLET PO PRN ×2 (09:26→23:26)
[2017-08-26] MEDS: ACETAMINOPHEN 325 MG TABLET (FP) PO PRN (09:27)
[2017-08-26] MEDS: ISOSORBIDE MONONITRATE 30 MG TAB.SR.24H (FP) PO SCH (09:29)
[2017-08-26] MEDS: ASPIRIN COATED 81 MG TABLET.EC PO SCH (09:29)
[2017-08-26] MEDS: CARVEDILOL 25 MG TABLET (FP) PO SCH ×2 (09:29→21:03)
[2017-08-26] MEDS: MUPIROCIN 2% TOPICAL OINTMENT FOR DECOLONIZATION NS SCH ×2 (09:31→21:05)
[2017-08-26] MEDS ORDERED: BACITRACIN 15 GM TUBE TOPICAL OINTMENT TP ONE (10:00)
[2017-08-26] MEDS ORDERED: ALBUTEROL SO4 0.083% IH SOL 2.5 MG/3 ML VIAL.NEB. NEB PRN (11:50)
[2017-08-26] MEDS ORDERED: ACETYLCYSTEINE 20% 200MG/ML 30 ML VIAL *FOR ORAL / INH USE ONLY NEB SCH ×2 (12:00→14:00)
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
[2017-08-26] MEDS ORDERED: ACETYLCYSTEINE 20% 200MG/ML 4 ML VIAL *FOR ORAL / INH USE ONLY ONE (14:05)
[2017-08-26] MEDS: ALBUTEROL SO4 0.083% IH SOL 2.5 MG/3 ML VIAL.NEB. NEB SCH ×3 (14:10→22:10)
--- NOTE | 2017-08-26 16:11 | PN ---
Progress Note, Physician History of Present Illness: Awake, alert Less dyspneic Less cough, sputum clearer Low grade temp Appears comfortable on nasal cannula - Current Medication List Current Medications: Active Medications Acetaminophen (Tylenol -) 325 mg PO Q4H PRN PRN Reason: PAIN Stop: 08/27/17 10:16 Last Admin: 08/26/17 09:27 Dose: 325 mg Acetylcysteine (Mucomyst 20 Oral / Inh Use Only*) 200 mg NEB QID [facility] Albuterol Sulfate (Ventolin 0.083% Nebulizer Soln -) 1 amp NEB QID [facility] Last Admin: 08/26/17 14:10 Dose: 1 amp Albuterol/Ipratropium (Duoneb -) 1 amp NEB Q6H PRN PRN Reason: SHORTNESS OF BREATH Last Admin: 08/26/17 11:15 Dose: 1 amp Aspirin (Ecotrin -) 81 mg PO DAILY [facility] Last Admin: 08/26/17 09:29 Dose: 81 mg Carvedilol (Coreg -) 25 mg PO BID [facility] Last Admin: 08/26/17 09:29 Dose: 25 mg Chlorhexidine Gluconate (Hibiclens For Decolonization -) 1 applic TP HS [facility] Last Admin: 08/25/17 21:18 Dose: 1 applic Heparin Sodium (Porcine) (Heparin -) 5,000 unit SQ Q8H-IV [facility] Last Admin: 08/26/17 09:29 Dose: 5,000 unit Hydralazine HCl (Apresoline -) 50 mg PO TID [facility] Last Admin: 08/26/17 13:34 Dose: Not Given Piperacillin Sod/Tazobactam Sod (Zosyn 2.25gm Ivpb (Pre-Docked)) 50 mls @ 100 mls/hr IVPB Q8H-IV [facility] PRN Reason: Protocol Last Admin: 08/26/17 09:29 Dose: 100 mls/hr Isosorbide Mononitrate (Imdur -) 30 mg PO DAILY [facility] Last Admin: 08/26/17 09:29 Dose: 30 mg Mupirocin (Bactroban Ointment (For Decolonization) -) 1 applic NS BID [facility] Stop: 08/29/17 09:59 Last Admin: 08/26/17 09:31 Dose: 1 applic Oxycodone HCl (Roxicodone -) 5 mg PO Q4H PRN PRN Reason: PAIN Last Admin: 08/26/17 09:26 Dose: 5 mg - Objective Vital Signs: Vital Signs Temperature 98.7 F 08/26/17 14:00 Pulse Rate 66 08/26/17 14:00 Respiratory Rate 23 08/26/17 14:00 Blood Pressure 92/50 08/26/17 14:00 O2 Sat by Pulse Oximetry (%) 100 08/26/17 10:12 Constitutional: Yes: No Distress Eyes: Yes: Conjunctiva Clear Cardiovascular: Yes: Regular Rate and Rhythm, S1, S2 Respiratory: Yes: Other (crepitations R base; bilateral rhonchi) Gastrointestinal: Yes: Normal Bowel Sounds, Soft. No: Tenderness Edema: No Labs: CBC, BMP 08/26/17 05:00 08/26/17 05:00 INR, PTT INR 1.14 (0.82-1.09) 08/23/17 21:40 Assessment/Plan HCAP ESRD Paraplegia Await c/s Continue zosyn
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
[2017-08-26] MEDS: ACETYLCYSTEINE 20% 200MG/ML 4 ML VIAL *FOR ORAL / INH USE ONLY NEB SCH ×2 (17:43→22:09)
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
[2017-08-26] MEDS: CHLORHEXIDINE GLUCONATE 4% CLEANSER FOR DECOLONIZATION TP SCH (21:06)
[2017-08-27] MEDS: PIPERACILLIN/TAZOB 2.25 GM 50 ML IVPB SCH ×3 (01:35→17:36)
[2017-08-27] MEDS: HEPARIN NA (PORCINE) 5,000 UNITS/ML 1ML VIAL SQ SCH ×4 (01:35→21:53)
[2017-08-27 06:09] LABS: BASOPHIL 0.6 % (0-2.0); EOSINOPHIL 12.2 % (0-4.5); MCH 31.2 pg (25.7-33.7); MCHC 32.3 g/dl (32.0-35.9); MEAN CELL VOLUME 96.9 fl (80-96); MEAN PLT VOLUME 9.6 fl (7.5-11.1); NEUTROPHILS 62.3 % (42.8-82.8); PLATELET COUNT 133 K/MM3 (134-434); WHITE BLOOD COUNT 5.8 K/mm3 (4.0-10.0)
[2017-08-27] MEDS: ALBUTEROL SO4 2.5/IPRATROPIUM 0.5 INH SOL 3 ML VIAL.NEB. NEB PRN (06:30)
[2017-08-27 06:32] LABS: ALBUMIN 2.7 g/dl (3.4-5.0); ALK PHOS 73 U/L (45-117); ANION GAP 7 (8-16); BILIRUBIN,TOTAL 0.4 mg/dL (0.2-1.0); CALCIUM 7.7 mg/dL (8.5-10.1); CO2 33 mmol/L (21-32); CREATININE 6.5 mg/dL (0.7-1.3); GLUCOSE,RANDOM 81 mg/dL (74-106); MAGNESIUM 2.4 mg/dL (1.8-2.4); SGOT/AST 21 U/L (15-37); SGPT/ALT 39 U/L (12-78); TOT PROT 6.8 g/dl (6.4-8.2)
[2017-08-27] MEDS: oxyCODONE HCL 5 MG TABLET PO PRN ×3 (06:48→20:24)
[2017-08-27] MEDS: hydrALAZINE HCL 50 MG TABLET (FP) PO SCH ×2 (06:49→21:53)
[2017-08-27] MEDS ORDERED: EPOETIN ALFA 2,000 UNITS/1 ML VIAL IVPUSH ONE (08:30)
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
--- NOTE | 2017-08-27 08:47 | PN ---
Progress Note, Physician History of Present Illness: Clinically improved Awake, alert No complaints Denies chest pain/ dyspnea/ cough No c/o fever/ chills + Low grade temp WBC WNL CXR better aeration R apex Sputum normal damaris - Current Medication List Current Medications: Active Medications Acetaminophen (Tylenol -) 325 mg PO Q4H PRN PRN Reason: PAIN Stop: 08/27/17 10:16 Last Admin: 08/26/17 09:27 Dose: 325 mg Acetylcysteine (Mucomyst 20 Oral / Inh Use Only*) 200 mg NEB QID [facility] Last Admin: 08/26/17 22:09 Dose: 200 mg Albuterol Sulfate (Ventolin 0.083% Nebulizer Soln -) 1 amp NEB QID [facility] Last Admin: 08/26/17 22:10 Dose: 1 amp Albuterol/Ipratropium (Duoneb -) 1 amp NEB Q6H PRN PRN Reason: SHORTNESS OF BREATH Last Admin: 08/27/17 06:30 Dose: 1 amp Aspirin (Ecotrin -) 81 mg PO DAILY [facility] Last Admin: 08/26/17 09:29 Dose: 81 mg Carvedilol (Coreg -) 25 mg PO BID [facility] Last Admin: 08/26/17 21:03 Dose: 25 mg Chlorhexidine Gluconate (Hibiclens For Decolonization -) 1 applic TP HS [facility] Last Admin: 08/26/17 21:06 Dose: 1 applic Heparin Sodium (Porcine) (Heparin -) 5,000 unit SQ Q8H-IV [facility] Last Admin: 08/27/17 01:35 Dose: 5,000 unit Heparin Sodium (Porcine) (Heparin -) 1,000 unit IVPUSH ONCE ONE Stop: 08/27/17 10:01 Hydralazine HCl (Apresoline -) 50 mg PO TID [facility] Last Admin: 08/27/17 06:49 Dose: Not Given Piperacillin Sod/Tazobactam Sod (Zosyn 2.25gm Ivpb (Pre-Docked)) 50 mls @ 100 mls/hr IVPB Q8H-IV [facility]KA PRN Reason: Protocol Last Admin: 08/27/17 01:35 Dose: 100 mls/hr Isosorbide Mononitrate (Imdur -) 30 mg PO DAILY [facility] Last Admin: 08/26/17 09:29 Dose: 30 mg Mupirocin (Bactroban Ointment (For Decolonization) -) 1 applic NS BID [facility] Stop: 08/29/17 09:59 Last Admin: 08/26/17 21:05 Dose: 1 applic Oxycodone HCl (Roxicodone -) 5 mg PO Q4H PRN PRN Reason: PAIN Last Admin: 08/27/17 06:48 Dose: 5 mg - Objective Vital Signs: Vital Signs Temperature 97.8 F 08/27/17 06:55 Pulse Rate 75 08/27/17 07:30 Respiratory Rate 18 08/27/17 07:30 Blood Pressure 90/52 08/27/17 07:30 O2 Sat by Pulse Oximetry (%) 99 08/26/17 22:02 Constitutional: Yes: No Distress, Cachectic Cardiovascular: Yes: Regular Rate and Rhythm, S1, S2 Respiratory: Yes: Other (+ crepitations R base, rhonchi L lung field) Gastrointestinal: Yes: Normal Bowel Sounds, Soft. No: Tenderness Edema: No Labs: CBC, BMP 08/27/17 05:55 08/27/17 05:55 INR, PTT INR 1.14 (0.82-1.09) 08/23/17 21:40 Assessment/Plan HCAP/ Atelectasis ESRD Paraplegia Continue zosyn Bronchodilators, mucomyst
[2017-08-27] MEDS ORDERED: PT OWN MED DRAWER 7, Y5N ONE ×2 (08:54→10:44)
[2017-08-27] MEDS ORDERED: HEPARIN NA (PORCINE) 5,000 UNITS/ML 1ML VIAL IVPUSH ONE (10:00)
[2017-08-27] MEDS: ALBUTEROL SO4 0.083% IH SOL 2.5 MG/3 ML VIAL.NEB. NEB SCH ×4 (10:35→23:59)
[2017-08-27] MEDS: ACETYLCYSTEINE 20% 200MG/ML 4 ML VIAL *FOR ORAL / INH USE ONLY NEB SCH ×4 (10:35→23:59)
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
[2017-08-27] MEDS: CARVEDILOL 25 MG TABLET (FP) PO SCH ×2 (12:06→21:53)
[2017-08-27] MEDS: ASPIRIN COATED 81 MG TABLET.EC PO SCH (12:07)
[2017-08-27] MEDS: MUPIROCIN 2% TOPICAL OINTMENT FOR DECOLONIZATION NS SCH (12:08)
[2017-08-27] MEDS: ISOSORBIDE MONONITRATE 30 MG TAB.SR.24H (FP) PO SCH (12:08)
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
[2017-08-27] MEDS ORDERED: ALBUTEROL SO4 2.5/IPRATROPIUM 0.5 INH SOL 3 ML VIAL.NEB. NEB PRN (18:38)
[2017-08-27] MEDS ORDERED: CHLORHEXIDINE GLUCONATE 4% CLEANSER FOR DECOLONIZATION TP SCH (22:00)
[2017-08-27] MEDS ORDERED: MUPIROCIN 2% TOPICAL OINTMENT FOR DECOLONIZATION NS SCH (22:00)
[2017-08-28] MEDS: PIPERACILLIN/TAZOB 2.25 GM 50 ML IVPB SCH ×3 (01:37→17:25)
[2017-08-28] MEDS: oxyCODONE HCL 5 MG TABLET PO PRN ×2 (06:08→18:32)
[2017-08-28] MEDS: hydrALAZINE HCL 50 MG TABLET (FP) PO SCH ×3 (06:09→22:48)
[2017-08-28] MEDS: HEPARIN NA (PORCINE) 5,000 UNITS/ML 1ML VIAL SQ SCH ×3 (06:09→22:48)
[2017-08-28] MEDS: ACETYLCYSTEINE 20% 200MG/ML 4 ML VIAL *FOR ORAL / INH USE ONLY NEB SCH ×3 (06:43→18:06)
[2017-08-28] MEDS: ALBUTEROL SO4 0.083% IH SOL 2.5 MG/3 ML VIAL.NEB. NEB SCH ×3 (06:44→18:06)
[2017-08-28] MEDS: CARVEDILOL 25 MG TABLET (FP) PO SCH ×2 (09:12→22:48)
[2017-08-28] MEDS: ISOSORBIDE MONONITRATE 30 MG TAB.SR.24H (FP) PO SCH (09:12)
[2017-08-28] MEDS: ASPIRIN COATED 81 MG TABLET.EC PO SCH (09:12)
[2017-08-28 09:18] LABS: MCHC 31.1 g/dl (32.0-35.9); MEAN CELL VOLUME 96.6 fl (80-96); PLATELET COUNT 133 K/MM3 (134-434); RDW 20.1 % (11.9-15.9); WHITE BLOOD COUNT 4.8 K/mm3 (4.0-10.0)
[2017-08-28 10:15] LABS: ALBUMIN 2.9 g/dl (3.4-5.0); ANION GAP 9 (8-16); BILIRUBIN,TOTAL 0.5 mg/dL (0.2-1.0); CALCIUM 8.4 mg/dL (8.5-10.1); CO2 32 mmol/L (21-32); CREATININE 4.7 mg/dL (0.7-1.3); GLUCOSE,RANDOM 109 mg/dL (74-106); MAGNESIUM 2.4 mg/dL (1.8-2.4); PHOSPHOROUS 5.4 mg/dL (2.5-4.9); SGOT/AST 18 U/L (15-37); SGPT/ALT 34 U/L (12-78); TOT PROT 7.4 g/dl (6.4-8.2)
[2017-08-28 10:16] LABS: ALK PHOS 66 U/L (45-117)
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
--- NOTE | 2017-08-28 12:02 | PN ---
Progress Note, Physician History of Present Illness: Awake, alert No c/o chest pain/ dyspnea Occasional cough Sputum now yellowish Afebrile WBC WNL CXR opacified R hemithorax - Current Medication List Current Medications: Active Medications Acetylcysteine (Mucomyst 20 Oral / Inh Use Only*) 200 mg NEB QIDR [facility] Last Admin: 08/28/17 11:47 Dose: Not Given Acetylcysteine (Mucomyst 20 Oral / Inh Use Only*) 200 mg NEB ONCE ONE Stop: 08/28/17 11:40 Albuterol Sulfate (Ventolin 0.083% Nebulizer Soln -) 1 amp NEB QIDR [facility] Last Admin: 08/28/17 11:47 Dose: Not Given Aspirin (Ecotrin -) 81 mg PO DAILY [facility] Last Admin: 08/28/17 09:12 Dose: 81 mg Carvedilol (Coreg -) 25 mg PO BID [facility] Last Admin: 08/28/17 09:12 Dose: 25 mg Heparin Sodium (Porcine) (Heparin -) 5,000 unit SQ TID [facility] Last Admin: 08/28/17 06:09 Dose: 5,000 unit Hydralazine HCl (Apresoline -) 50 mg PO TID [facility] Last Admin: 08/28/17 06:09 Dose: 50 mg Piperacillin/Tazobactam/Dextrose (Zosyn 2.25gm Ivpb (Premix)) 50 mls @ 100 mls/ hr IVPB Q8H-IV [facility] PRN Reason: Protocol Last Admin: 08/28/17 09:29 Dose: 100 mls/hr Isosorbide Mononitrate (Imdur -) 30 mg PO DAILY [facility] Last Admin: 08/28/17 09:12 Dose: 30 mg Methylprednisolone Sodium Succinate (Solu-Medrol -) 40 mg IVPB Q8H-IV [facility]URKA Oxycodone HCl (Roxicodone -) 5 mg PO Q4H PRN PRN Reason: PAIN Last Admin: 08/28/17 06:08 Dose: 5 mg - Objective Vital Signs: Vital Signs Temperature 97.6 F 08/28/17 05:39 Pulse Rate 73 08/28/17 10:14 Respiratory Rate 20 08/28/17 05:39 Blood Pressure 110/62 08/28/17 05:39 O2 Sat by Pulse Oximetry (%) 98 08/28/17 10:14 Constitutional: Yes: No Distress Eyes: Yes: Conjunctiva Clear Cardiovascular: Yes: Regular Rate and Rhythm, S1, S2 Respiratory: Yes: Diminished (decreased BS R) Gastrointestinal: Yes: Normal Bowel Sounds, Soft. No: Tenderness Labs: CBC, BMP 08/28/17 09:00 08/28/17 09:00 INR, PTT INR 1.14 (0.82-1.09) 08/23/17 21:40 Assessment/Plan HCAP/ Atelectasis ESRD Paraplegia Continue zosyn Bronchodilators, mucomyst
[2017-08-28] MEDS: methylPREDNISolone NA SUCC 40 MG/1 ML VIAL IVPB SCH ×2 (13:13→17:25)
[2017-08-28] MEDS ORDERED: ACETYLCYSTEINE 20% 200MG/ML 4 ML VIAL *FOR ORAL / INH USE ONLY NEB ONE (13:30)
--- NOTE | 2017-08-28 15:28 | PN ---
Progress Note, Physician - Current Medication List Current Medications: Active Medications Acetylcysteine (Mucomyst 20 Oral / Inh Use Only*) 200 mg NEB QIDR [facility] Last Admin: 08/28/17 11:47 Dose: Not Given Albuterol Sulfate (Ventolin 0.083% Nebulizer Soln -) 1 amp NEB QIDR [facility] Last Admin: 08/28/17 11:47 Dose: Not Given Aspirin (Ecotrin -) 81 mg PO DAILY [facility] Last Admin: 08/28/17 09:12 Dose: 81 mg Carvedilol (Coreg -) 25 mg PO BID [facility] Last Admin: 08/28/17 09:12 Dose: 25 mg Heparin Sodium (Porcine) (Heparin -) 5,000 unit SQ TID [facility] Last Admin: 08/28/17 13:13 Dose: 5,000 unit Hydralazine HCl (Apresoline -) 50 mg PO TID [facility] Last Admin: 08/28/17 13:12 Dose: 50 mg Piperacillin/Tazobactam/Dextrose (Zosyn 2.25gm Ivpb (Premix)) 50 mls @ 100 mls/ hr IVPB Q8H-IV [facility] PRN Reason: Protocol Last Admin: 08/28/17 09:29 Dose: 100 mls/hr Isosorbide Mononitrate (Imdur -) 30 mg PO DAILY [facility] Last Admin: 08/28/17 09:12 Dose: 30 mg Methylprednisolone Sodium Succinate (Solu-Medrol -) 40 mg IVPB Q8H-IV [facility] Last Admin: 08/28/17 13:13 Dose: 40 mg Oxycodone HCl (Roxicodone -) 5 mg PO Q4H PRN PRN Reason: PAIN Last Admin: 08/28/17 06:08 Dose: 5 mg - Objective Vital Signs: Vital Signs Temperature 99.2 F 08/28/17 14:17 Pulse Rate 75 08/28/17 14:17 Respiratory Rate 20 08/28/17 14:17 Blood Pressure 106/59 08/28/17 14:17 O2 Sat by Pulse Oximetry (%) 98 08/28/17 10:14 Constitutional: Yes: Well Nourished, No Distress, Calm Eyes: Yes: WNL, Conjunctiva Clear, EOM Intact HENT: Yes: WNL, Atraumatic, Normocephalic Cardiovascular: Yes: WNL, Regular Rate and Rhythm Respiratory: Yes: WNL, Regular, CTA Bilaterally Gastrointestinal: Yes: WNL, Normal Bowel Sounds Labs: CBC, BMP 08/28/17 09:00 08/28/17 09:00 INR, PTT INR 1.14 (0.82-1.09) 08/23/17 21:40 Problem List - Problems (1) Pleural effusion Assessment/Plan: right sided pleural effusion improving with dialysis Code(s): J90 - PLEURAL EFFUSION, NOT ELSEWHERE CLASSIFIED (2) ESRD (end stage renal disease) Assessment/Plan: patient is on dialysis improving with dialysis Code(s): N18.6 - END STAGE RENAL DISEASE (3) Elevated diaphragm Assessment/Plan: 2/2 paraplegia worsening clearing of secretions Code(s): J98.6 - DISORDERS OF DIAPHRAGM (4) Fluid overload Assessment/Plan: s/p dialysis improvement in patients fluid status Code(s): E87.70 - FLUID OVERLOAD, UNSPECIFIED (5) Hyperkalemia Code(s): E87.5 - HYPERKALEMIA (6) Paraplegia Assessment/Plan: no active issues Code(s): G82.20 - PARAPLEGIA, UNSPECIFIED (7) Hypoalbuminemia due to protein-calorie malnutrition Assessment/Plan: ESRD with paraplesia bed ridden requires supplementations Code(s): E46 - UNSPECIFIED PROTEIN-CALORIE MALNUTRITION
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
[2017-08-28] MEDS ORDERED: PT OWN MED DRAWER 7, Y5N ONE (17:00)
[2017-08-29] MEDS: methylPREDNISolone NA SUCC 40 MG/1 ML VIAL IVPB SCH ×3 (02:28→17:07)
[2017-08-29] MEDS ORDERED: PT OWN MED DRAWER 7, Y5N ONE ×2 (02:31→09:37)
[2017-08-29] MEDS: PIPERACILLIN/TAZOB 2.25 GM 50 ML IVPB SCH ×3 (02:43→17:07)
[2017-08-29] MEDS: hydrALAZINE HCL 50 MG TABLET (FP) PO SCH ×3 (06:00→22:48)
[2017-08-29] MEDS: HEPARIN NA (PORCINE) 5,000 UNITS/ML 1ML VIAL SQ SCH ×3 (06:02→22:52)
[2017-08-29] MEDS: oxyCODONE HCL 5 MG TABLET PO PRN ×3 (06:02→23:53)
[2017-08-29] MEDS: ACETYLCYSTEINE 20% 200MG/ML 4 ML VIAL *FOR ORAL / INH USE ONLY NEB SCH ×4 (06:35→17:58)
[2017-08-29] MEDS: ALBUTEROL SO4 0.083% IH SOL 2.5 MG/3 ML VIAL.NEB. NEB SCH ×4 (06:35→17:58)
[2017-08-29 08:37] LABS: MCH 29.6 pg (25.7-33.7); MCHC 31.3 g/dl (32.0-35.9); MEAN CELL VOLUME 94.6 fl (80-96); MEAN PLT VOLUME 8.5 fl (7.5-11.1); PLATELET COUNT 154 K/MM3 (134-434); RDW 19.4 % (11.9-15.9); WHITE BLOOD COUNT 2.9 K/mm3 (4.0-10.0)
[2017-08-29 09:10] LABS: ALBUMIN 3.2 g/dl (3.4-5.0); ANION GAP 10 (8-16); BILIRUBIN,TOTAL 0.4 mg/dL (0.2-1.0); CALCIUM 8.4 mg/dL (8.5-10.1); CO2 32 mmol/L (21-32); CREATININE 6.7 mg/dL (0.7-1.3); GLUCOSE,RANDOM 164 mg/dL (74-106); SGOT/AST 13 U/L (15-37); SGPT/ALT 31 U/L (12-78); TOT PROT 7.9 g/dl (6.4-8.2)
[2017-08-29 09:11] LABS: ALK PHOS 79 U/L (45-117)
[2017-08-29] MEDS: CARVEDILOL 25 MG TABLET (FP) PO SCH ×2 (09:41→22:48)
[2017-08-29] MEDS: ASPIRIN COATED 81 MG TABLET.EC PO SCH (09:41)
[2017-08-29] MEDS: ISOSORBIDE MONONITRATE 30 MG TAB.SR.24H (FP) PO SCH (09:41)
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
--- NOTE | 2017-08-29 15:59 | PN ---
Teaching Attending Note Name of Resident: Jacob Cook ATTENDING PHYSICIAN STATEMENT I saw and evaluated the patient. I reviewed the resident's note and discussed the case with the resident. I agree with the resident's findings and plan as documented. SUBJECTIVE: OBJECTIVE: ASSESSMENT AND PLAN: patient i doing well no complaints will continue the same management of the patient will continue dialysis will continue zosyn Problem List - Problems (1) Pleural effusion Code(s): J90 - PLEURAL EFFUSION, NOT ELSEWHERE CLASSIFIED (2) ESRD (end stage renal disease) Code(s): N18.6 - END STAGE RENAL DISEASE (3) Elevated diaphragm Code(s): J98.6 - DISORDERS OF DIAPHRAGM (4) Fluid overload Code(s): E87.70 - FLUID OVERLOAD, UNSPECIFIED (5) Hyperkalemia Code(s): E87.5 - HYPERKALEMIA (6) Paraplegia Code(s): G82.20 - PARAPLEGIA, UNSPECIFIED (7) Hypoalbuminemia due to protein-calorie malnutrition Code(s): E46 - UNSPECIFIED PROTEIN-CALORIE MALNUTRITION
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
[2017-08-30] MEDS: ACETYLCYSTEINE 20% 200MG/ML 4 ML VIAL *FOR ORAL / INH USE ONLY NEB SCH ×5 (00:06→23:40)
[2017-08-30] MEDS: ALBUTEROL SO4 0.083% IH SOL 2.5 MG/3 ML VIAL.NEB. NEB SCH ×5 (00:07→22:40)
[2017-08-30] MEDS: PIPERACILLIN/TAZOB 2.25 GM 50 ML IVPB SCH ×3 (01:04→18:50)
[2017-08-30] MEDS: methylPREDNISolone NA SUCC 40 MG/1 ML VIAL IVPB SCH ×3 (02:11→18:50)
[2017-08-30] MEDS: hydrALAZINE HCL 50 MG TABLET (FP) PO SCH ×3 (05:49→21:40)
[2017-08-30] MEDS: HEPARIN NA (PORCINE) 5,000 UNITS/ML 1ML VIAL SQ SCH ×4 (05:49→21:40)
[2017-08-30 07:21] LABS: BASOPHIL 0.1 % (0-2.0); MCH 29.9 pg (25.7-33.7); MCHC 31.6 g/dl (32.0-35.9); MEAN CELL VOLUME 94.7 fl (80-96); MEAN PLT VOLUME 9.2 fl (7.5-11.1); NEUTROPHILS 88.2 % (42.8-82.8); PLATELET COUNT 136 K/MM3 (134-434); RDW 19.2 % (11.9-15.9); WHITE BLOOD COUNT 4.7 K/mm3 (4.0-10.0)
[2017-08-30 07:53] LABS: ANION GAP 14 (8-16); CALCIUM 7.5 mg/dL (8.5-10.1); CO2 27 mmol/L (21-32); GLUCOSE,RANDOM 111 mg/dL (74-106)
--- NOTE | 2017-08-30 10:06 | PN ---
Progress Note, Physician History of Present Illness: No complaints No c/o chest pain/ dyspnea Occasional cough, yellow sputum No c/o fever/ chills Afebrile CXR shows opacified R hemithorax - Current Medication List Current Medications: Active Medications Acetylcysteine (Mucomyst 20 Oral / Inh Use Only*) 200 mg NEB QIDR [facility] Last Admin: 08/30/17 06:36 Dose: Not Given Albuterol Sulfate (Ventolin 0.083% Nebulizer Soln -) 1 amp NEB QIDR [facility] Last Admin: 08/30/17 06:36 Dose: Not Given Aspirin (Ecotrin -) 81 mg PO DAILY [facility] Last Admin: 08/29/17 09:41 Dose: 81 mg Carvedilol (Coreg -) 25 mg PO BID [facility] Last Admin: 08/29/17 22:48 Dose: 25 mg Heparin Sodium (Porcine) (Heparin -) 5,000 unit SQ TID [facility] Last Admin: 08/30/17 05:53 Dose: 5,000 unit Hydralazine HCl (Apresoline -) 50 mg PO TID [facility] Last Admin: 08/30/17 05:49 Dose: 50 mg Piperacillin/Tazobactam/Dextrose (Zosyn 2.25gm Ivpb (Premix)) 50 mls @ 100 mls/ hr IVPB Q8H-IV [facility] PRN Reason: Protocol Last Admin: 08/30/17 09:43 Dose: 100 mls/hr Isosorbide Mononitrate (Imdur -) 30 mg PO DAILY [facility] Last Admin: 08/29/17 09:41 Dose: 30 mg Methylprednisolone Sodium Succinate (Solu-Medrol -) 40 mg IVPB Q8H-IV [facility] Last Admin: 08/30/17 09:43 Dose: 40 mg Oxycodone HCl (Roxicodone -) 5 mg PO Q4H PRN PRN Reason: PAIN Stop: 08/30/17 18:38 Last Admin: 08/29/17 23:53 Dose: 5 mg - Objective Vital Signs: Vital Signs Temperature 97.9 F 08/30/17 09:40 Pulse Rate 69 08/30/17 09:40 Respiratory Rate 18 08/30/17 09:40 Blood Pressure 130/78 08/30/17 09:40 O2 Sat by Pulse Oximetry (%) 99 08/29/17 21:00 Constitutional: Yes: No Distress Eyes: Yes: Conjunctiva Clear Cardiovascular: Yes: Regular Rate and Rhythm, S1, S2 Respiratory: Yes: Diminished Gastrointestinal: Yes: Normal Bowel Sounds, Soft. No: Tenderness Edema: No Labs: CBC, BMP 08/30/17 05:35 08/30/17 05:35 INR, PTT INR 1.14 (0.82-1.09) 08/23/17 21:40 Assessment/Plan HCAP/ Atelectasis R lung ESRD Paraplegia Continue zosyn, day #7 Bronchodilators, mucomyst
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
[2017-08-30] MEDS: oxyCODONE HCL 5 MG TABLET PO PRN ×2 (14:10→20:01)
[2017-08-30] MEDS: ASPIRIN COATED 81 MG TABLET.EC PO SCH (14:29)
[2017-08-30] MEDS: CARVEDILOL 25 MG TABLET (FP) PO SCH ×2 (14:29→21:40)
[2017-08-30] MEDS: ISOSORBIDE MONONITRATE 30 MG TAB.SR.24H (FP) PO SCH (14:29)
[2017-08-30] MEDS ORDERED: EPOETIN ALFA 2,000 UNITS/1 ML VIAL IVPUSH ONE (16:00)
[2017-08-30] MEDS ORDERED: HEPARIN NA (PORCINE) 5,000 UNITS/ML 1ML VIAL IVPUSH ONE (16:00)
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
--- NOTE | 2017-08-30 17:41 | PN ---
Teaching Attending Note Name of Resident: Yessica Cook ATTENDING PHYSICIAN STATEMENT I saw and evaluated the patient. I reviewed the resident's note and discussed the case with the resident. I agree with the resident's findings and plan as documented. SUBJECTIVE: overall improved c/o cough sob improved OBJECTIVE: Vital Signs Temperature 97.9 F 08/30/17 09:40 Pulse Rate 60 08/30/17 17:35 Respiratory Rate 18 08/30/17 17:35 Blood Pressure 140/85 08/30/17 17:35 O2 Sat by Pulse Oximetry (%) 98 08/30/17 10:24 GENERAL: Comfortable, A/o x3 EYES: Extraocular movements intact, sclera anicteric, conjunctiva clear ENT:Moist mucous membranes. LUNGS: decreased breath sounds right lung, rhonchi (improved lung sounds today) HEART: RRR, normal S1 and S2 without murmur, rub or gallop. ABDOMEN: Soft, ntnd MUSCULOSKELETAL: Paraplegic, moves spenser UEs, 5/5 strength on B/L UE. 0/5 B/L LE LOWER EXTREMITIES: wwp, no edema CBC, BMP 08/30/17 05:35 08/30/17 05:35 ASSESSMENT AND PLAN: 1. Respiratory failure secondary to HCAP and CHF exacerbation/fluid overload - Chest CT reveals B/L upper lobe infiltrates with right greater than left side. Left lung base consolidation with small pleural effusions. Consolidation/ Atelectasis involving the right middle lobe and lower lobe with right pleural effusion. Now improved clinically. Slow recovery due to inability to efficiently expectorate. - O2 to keep SpO2 >90% - inhaled bronchodilators with mucomyst - IVAB - percussion VEST - Chest PT 2. ESRD - on TTS schedule . Had HD today 3. Anemia - stable , on prorit 4. Right sacral decubitus ulcer and left flank ulcer - Stage II - Turn and Position q2hr - bacitracin with dressing
[2017-08-31] MEDS: methylPREDNISolone NA SUCC 40 MG/1 ML VIAL IVPB SCH ×3 (02:35→17:06)
[2017-08-31] MEDS: PIPERACILLIN/TAZOB 2.25 GM 50 ML IVPB SCH ×3 (02:46→17:02)
[2017-08-31] MEDS: ALBUTEROL SO4 0.083% IH SOL 2.5 MG/3 ML VIAL.NEB. NEB SCH ×4 (06:00→23:25)
[2017-08-31] MEDS: ACETYLCYSTEINE 20% 200MG/ML 4 ML VIAL *FOR ORAL / INH USE ONLY NEB SCH ×4 (06:00→23:25)
[2017-08-31] MEDS: HEPARIN NA (PORCINE) 5,000 UNITS/ML 1ML VIAL SQ SCH ×3 (06:26→21:35)
[2017-08-31] MEDS: hydrALAZINE HCL 50 MG TABLET (FP) PO SCH ×3 (06:26→21:35)
--- NOTE | 2017-08-31 08:25 | PN ---
Physical Exam: SUBJECTIVE: Patient seen and examined. No acute events overnight. Patient offers no new complaints and says he feels much better than yesterday. OBJECTIVE: Vital Signs Period Temp Pulse Resp BP Sys/Patino Pulse Ox Last 24 Hr 97.9 F-98.5 F 60-75 18-18 117-151/76-87 98-99 GENERAL: Comfortable, A/o x3 EYES: Extraocular movements intact, sclera anicteric, conjunctiva clear ENT:Moist mucous membranes. LUNGS: decreased breath sounds right lung, rhonchi (improved lung sounds today) HEART: RRR, normal S1 and S2 without murmur, rub or gallop. ABDOMEN: Soft, ntnd MUSCULOSKELETAL: Paraplegic, moves spenser UEs, 5/5 strength on B/L UE. 0/5 B/L LE LOWER EXTREMITIES: wwp, no edema SKIN: 1 x 1cm Stage II pressure ulcer to Right sacrum noted, 1cm ulcer on left flank Laboratory Results - last 24 hr 08/30/17 05:35 Sodium 137 Potassium 5.2 H Chloride 96 L Carbon Dioxide 27 Anion Gap 14 BUN 68 H D Creatinine 8.0 H* Random Glucose 111 H D Calcium 7.5 L Active Medications Generic Name Dose Route Start Last Admin Trade Name Freq PRN Reason Stop Dose Admin Acetylcysteine 200 mg 08/28/17 00:00 08/31/17 06:00 Mucomyst 20 Oral / Inh Use Only* NEB 200 mg QIDR [facility] Administration Albuterol Sulfate 1 amp 08/28/17 00:00 08/31/17 06:00 Ventolin 0.083% Nebulizer Soln - NEB 1 amp QIDR [facility] Administration Aspirin 81 mg 08/28/17 10:00 08/30/17 14:29 Ecotrin - PO Not Given DAILY [facility] Carvedilol 25 mg 08/27/17 14:26 08/30/17 21:40 Coreg - PO 25 mg BID [facility] Administration Heparin Sodium (Porcine) 5,000 unit 08/27/17 22:00 08/31/17 06:26 Heparin - SQ 5,000 unit TID [facility] Administration Hydralazine HCl 50 mg 08/27/17 14:27 08/31/17 06:26 Apresoline - PO 50 mg TID [facility] Administration Piperacillin/Tazobactam/Dextrose 50 mls @ 100 mls/hr 08/28/17 02:00 08/31/17 02 :46 Zosyn 2.25gm Ivpb (Premix) IVPB 100 mls/hr Q8H-IV [facility] Administration Protocol Isosorbide Mononitrate 30 mg 08/27/17 14:28 08/30/17 14:29 Imdur - PO Not Given DAILY [facility] Methylprednisolone Sodium Succinate 40 mg 08/28/17 11:45 08/31/17 02:35 Solu-Medrol - IVPB 40 mg Q8H-IV [facility] Administration Oxycodone HCl 5 mg 08/30/17 19:46 08/30/17 20:01 Roxicodone - PO 5 mg Q4H PRN Administration PAIN ASSESSMENT/PLAN: #Acute hypoxic respiratory failure likely secondary to HCAP -Chest CT reveals B/L upper lobe infiltrates with right greater than left side. Left lung base consolidation with small pleural effusions. Consolidation/ Atelectasis involving the right middle lobe and lower lobe with right pleural effusion. -Right sided consolidation with atelectasis -Suspected HCAP, also possible pulmonary congestion from ESRD, and chronic CHF. -Continue IV antibiotics: Zosyn Day 8 -CXR ordered for today -Mucomist with Albuterol nebs q6h -Duo nebs q6h PRN #ESRD - pt has a TTS schedule for HD - f/u nephro reccs -Will monitor #Right sacral decubitus ulcer and left flank ulcer - Stage II - Turn and Position q2hr -bacitracin with dressing #Anemia -History of anemia -Patients H&H currently at baseline -Epogen for anemia -will monitor #History of Systolic CHF, HTN: -volume management with HD -continue home meds of: -Coreg 25mg po BID -Hydralazine HCl 50mg po TID -Isosorbide Mononitrate 30mg po daily #Back pain -resolved -pain control with oxycodone 5mg prn q4 #FEN - Fluids: held - Electrolytes: wnl, continue to monitor - renal diet #PPX - Heparin SQ TID -PT for deconditioning Visit type - Emergency Visit Emergency Visit: Yes ED Registration Date: 08/23/17 Care time: The patient presented to the Emergency Department on the above date and was hospitalized for further evaluation of their emergent condition. - New Patient This patient is new to me today: No - Critical Care Critical Care patient: No
[2017-08-31 09:39] LABS: BASOPHIL 0.1 % (0-2.0); MCH 30.1 pg (25.7-33.7); MCHC 31.8 g/dl (32.0-35.9); MEAN CELL VOLUME 94.7 fl (80-96); MEAN PLT VOLUME 8.6 fl (7.5-11.1); NEUTROPHILS 87.5 % (42.8-82.8); PLATELET COUNT 162 K/MM3 (134-434); RDW 19.3 % (11.9-15.9); WHITE BLOOD COUNT 5.8 K/mm3 (4.0-10.0)
[2017-08-31 10:20] LABS: ANION GAP 11 (8-16); CALCIUM 7.4 mg/dL (8.5-10.1); CO2 31 mmol/L (21-32); CREATININE 5.1 mg/dL (0.7-1.3); GLUCOSE,RANDOM 132 mg/dL (74-106)
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
[2017-08-31] MEDS: CARVEDILOL 25 MG TABLET (FP) PO SCH ×2 (10:38→21:35)
[2017-08-31] MEDS: ISOSORBIDE MONONITRATE 30 MG TAB.SR.24H (FP) PO SCH (10:39)
[2017-08-31] MEDS: ASPIRIN COATED 81 MG TABLET.EC PO SCH (10:39)
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
[2017-08-31] MEDS: oxyCODONE HCL 5 MG TABLET PO PRN (17:03)
[2017-09-01] MEDS: PIPERACILLIN/TAZOB 2.25 GM 50 ML IVPB SCH ×2 (02:48→09:05)
[2017-09-01] MEDS: methylPREDNISolone NA SUCC 40 MG/1 ML VIAL IVPB SCH ×2 (02:48→09:05)
[2017-09-01] MEDS: HEPARIN NA (PORCINE) 5,000 UNITS/ML 1ML VIAL SQ SCH (05:46)
[2017-09-01] MEDS: hydrALAZINE HCL 50 MG TABLET (FP) PO SCH (05:46)
[2017-09-01] MEDS: ALBUTEROL SO4 0.083% IH SOL 2.5 MG/3 ML VIAL.NEB. NEB SCH ×3 (06:30→18:31)
[2017-09-01] MEDS: ACETYLCYSTEINE 20% 200MG/ML 4 ML VIAL *FOR ORAL / INH USE ONLY NEB SCH ×3 (06:30→18:31)
[2017-09-01 08:14] LABS: ANION GAP 13 (8-16); CALCIUM 7.1 mg/dL (8.5-10.1); CO2 29 mmol/L (21-32); CREATININE 6.3 mg/dL (0.7-1.3); GLUCOSE,RANDOM 130 mg/dL (74-106); MAGNESIUM 2.4 mg/dL (1.8-2.4); PHOSPHOROUS 5.6 mg/dL (2.5-4.9)
--- NOTE | 2017-09-01 08:30 | PN ---
Physical Exam: SUBJECTIVE: Patient seen and examined. Offers no new complaints today. No acute events overnight. Says he still has the cough and is clearing white mucous. His breathing is much better today. OBJECTIVE: Vital Signs Period Temp Pulse Resp BP Sys/Patino Pulse Ox Last 24 Hr 97.7 F-98.6 F 61-86 16-18 111-130/66-77 98-99 GENERAL: The patient is awake, alert, and fully oriented, in no acute distress. HEAD: Normal with no signs of trauma. EYES: PERRL, extraocular movements intact, sclera anicteric, conjunctiva clear. No ptosis. ENT: Ears normal, nares patent, oropharynx clear without exudates, moist mucous membranes. NECK: Trachea midline, full range of motion, supple. LUNGS: Breath sounds equal, clear to auscultation bilaterally, no wheezes, no crackles, no accessory muscle use. HEART: Regular rate and rhythm, S1, S2 without murmur, rub or gallop. ABDOMEN: Soft, nontender, nondistended, normoactive bowel sounds, no guarding, no rebound, no hepatosplenomegaly, no masses. EXTREMITIES: 2+ pulses, warm, well-perfused, no edema. NEUROLOGICAL: Cranial nerves II through XII grossly intact. Normal speech, gait not observed. PSYCH: Normal mood, normal affect. SKIN: Warm, dry, normal turgor, no rashes or lesions noted Laboratory Results - last 24 hr 08/31/17 08/31/17 09:25 09:25 WBC 5.8 RBC 3.52 L Hgb 10.6 L D Hct 33.3 L MCV 94.7 MCH 30.1 MCHC 31.8 L RDW 19.3 H Plt Count 162 MPV 8.6 Neutrophils % 87.5 H Lymphocytes % 7.1 L Monocytes % 5.3 Eosinophils % 0.0 Basophils % 0.1 Sodium 139 Potassium 4.3 Chloride 97 L Carbon Dioxide 31 Anion Gap 11 BUN 52 H D Creatinine 5.1 H D Random Glucose 132 H Calcium 7.4 L Active Medications Generic Name Dose Route Start Last Admin Trade Name Freq PRN Reason Stop Dose Admin Acetylcysteine 200 mg 08/28/17 00:00 09/01/17 06:30 Mucomyst 20 Oral / Inh Use Only* NEB 200 mg QIDR NIURKA Administration Albuterol Sulfate 1 amp 08/28/17 00:00 09/01/17 06:30 Ventolin 0.083% Nebulizer Soln - NEB 1 amp QIDR NIURKA Administration Aspirin 81 mg 08/28/17 10:00 08/31/17 10:39 Ecotrin - PO 81 mg DAILY NIURKA Administration Carvedilol 25 mg 08/27/17 14:26 08/31/17 21:35 Coreg - PO 25 mg BID NIURKA Administration Epoetin Kleber 4,000 units 09/01/17 16:58 Epogen - IVPUSH 09/01/17 16:59 ONCE ONE Heparin Sodium (Porcine) 5,000 unit 08/27/17 22:00 09/01/17 05:46 Heparin - SQ 5,000 unit TID NIURKA Administration Heparin Sodium (Porcine) 1,000 unit 09/01/17 16:58 Heparin - IVPUSH 09/01/17 16:59 ONCE ONE Hydralazine HCl 50 mg 08/27/17 14:27 09/01/17 05:46 Apresoline - PO 50 mg TID NIURKA Administration Piperacillin/Tazobactam/Dextrose 50 mls @ 100 mls/hr 08/28/17 02:00 09/01/17 02 :48 Zosyn 2.25gm Ivpb (Premix) IVPB 100 mls/hr Q8H-IV NIURKA Administration Protocol Isosorbide Mononitrate 30 mg 08/27/17 14:28 08/31/17 10:39 Imdur - PO 30 mg DAILY NIURKA Administration Methylprednisolone Sodium Succinate 40 mg 08/28/17 11:45 09/01/17 02:48 Solu-Medrol - IVPB 40 mg Q8H-IV NIURKA Administration Oxycodone HCl 5 mg 08/30/17 19:46 08/31/17 17:03 Roxicodone - PO 5 mg Q4H PRN Administration PAIN ASSESSMENT/PLAN: #Acute hypoxic respiratory failure likely secondary to HCAP -Chest CT reveals B/L upper lobe infiltrates with right greater than left side. Left lung base consolidation with small pleural effusions. Consolidation/ Atelectasis involving the right middle lobe and lower lobe with right pleural effusion. -Right sided consolidation with atelectasis -Suspected HCAP, also possible pulmonary congestion from ESRD, and chronic CHF. -Continue IV antibiotics: Zosyn Day 9 -Mucomist with Albuterol nebs q6h -Duo nebs q6h PRN -Chest PT #ESRD -will have HD today - pt has a TTS schedule for HD - f/u nephro reccs -Will monitor #Right sacral decubitus ulcer and left flank ulcer - Stage II - Turn and Position q2hr -bacitracin with dressing #Anemia -History of anemia -Patients H&H currently at baseline -Epogen for anemia -will monitor #History of Systolic CHF, HTN: -volume management with HD -continue home meds of: -Coreg 25mg po BID -Hydralazine HCl 50mg po TID -Isosorbide Mononitrate 30mg po daily #Back pain -resolved -pain control with oxycodone 5mg prn q4 #FEN - Fluids: held - Electrolytes: wnl, continue to monitor - renal diet #PPX - Heparin SQ TID -PT for deconditioning
[2017-09-01] MEDS: CARVEDILOL 25 MG TABLET (FP) PO SCH (09:05)
[2017-09-01] MEDS: ASPIRIN COATED 81 MG TABLET.EC PO SCH (09:05)
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
[2017-09-01] MEDS: oxyCODONE HCL 5 MG TABLET PO PRN (12:01)
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
--- NOTE | 2017-09-01 14:04 | PN ---
Progress Note (short form) - Note Progress Note: he feels better coughing up copous tannish secretions Vital Signs Period Temp Pulse Resp BP Sys/Patino Pulse Ox Last 24 Hr 97.8 F-98.6 F 61-75 18-18 111-130/66-69 99 cor-rrr lungs decreased bs at bases abd-soft,nt CBC, BMP 08/31/17 09:25 09/01/17 06:00 Microbiology 08/23/17 21:40 Blood - Peripheral Venous Blood Culture - Final NO GROWTH AFTER 5 DAYS INCUBATION 08/23/17 21:40 Blood - Peripheral Venous Blood Culture - Final NO GROWTH AFTER 5 DAYS INCUBATION 08/25/17 09:30 Sputum - Expectorated Gram Stain - Final 08/25/17 09:30 Sputum - Expectorated Sputum Culture - Final NORMAL RESPIRATORY BETHANY 08/24/17 01:00 Nasopharyngeal Swab Respiratory Virus (PCR) - Final 08/24/17 01:00 Nasopharyngeal Swab Influenza Types A,B Antigen (KAYLIE) - Final 08/24/17 01:00 Nasopharyngeal Swab - Final cxray-left lung opacification a/p pneumonia left lung atelectasis continue zosyn paraplegia esrd/on hd
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
[2017-09-01 14:48] VITALS: TEMP 98.2
[2017-09-01] MEDS ORDERED: PIPERACILLIN/TAZOB 2.25 GM/50 ML PREMIX BAG IVPB SCH (15:30)
[2017-09-01] MEDS ORDERED: PIPERACILLIN/TAZOB 2.25 GM 50 ML IVPB ONE (16:15)
[2017-09-01] MEDS ORDERED: EPOETIN ALFA 2,000 UNITS/1 ML VIAL IVPUSH ONE (17:15)
[2017-09-01] MEDS ORDERED: HEPARIN NA (PORCINE) 5,000 UNITS/ML 1ML VIAL IVPUSH ONE (17:15)
[2017-09-01] MEDS ORDERED: methylPREDNISolone NA SUCC 40 MG/1 ML VIAL IVPUSH SCH (18:00)
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
[2017-09-01 19:57] VITALS: BP 175/100; PULSE 70
[2017-09-02] MEDS ORDERED: PIPERACILLIN/TAZOB 2.25 GM 50 ML IVPB SCH (02:00)
--- NOTE | 2017-09-03 11:55 | EKG ---
Test Reason : Blood Pressure : / mmHG Vent. Rate : 074 BPM Atrial Rate : 074 BPM P-R Int : 166 ms QRS Dur : 094 ms QT Int : 424 ms P-R-T Axes : 035 116 075 degrees QTc Int : 470 ms POOR DATA QUALITY, INTERPRETATION MAY BE ADVERSELY AFFECTED NORMAL SINUS RHYTHM POSSIBLE LEFT ATRIAL ENLARGEMENT INCOMPLETE RIGHT BUNDLE BRANCH BLOCK LEFT POSTERIOR FASCICULAR BLOCK ANTERIOR INFARCT , AGE UNDETERMINED ABNORMAL ECG WHEN COMPARED WITH ECG OF 29-JUL-2017 10:26,NO MAJOR CHANGES SEEN RIGHT VENTRICULAR PREPONDRENCE NEEDS TO BE CONSIDERED NO CLINICAL INFORMATION IS AVAILABLE Confirmed by ENRIQUETA PRATER MD ([id number]) on 08/24/2017 10:21:21 PM Also confirmed by ENRIQUETA PRATER MD ([id number]), television news video editor ASHLEY JUNIOR ([id number]) on 09/03/2017 10:17:00 AM Also confirmed by ENRIQUETA PRATER MD ([id number]), television news video editor KATHERINE HANNAH ([id number]) on 09/03/2017 11:55:28 AM Referred By: Confirmed By:ENRIQUETA PRATER MD
== END 2017-09-01 20:43 | disposition home or self-care (01) | DRG 139 ==
LOC: JER 21:07 → JICU 23:51 → JER 08-24 → J7W 08-27 21:01
PROVIDERS: ADMIT Internal Medicine; ATTEND Internal Medicine
PROC: 5A09357 Assistance with Respiratory Ventilation, Less than 24 Consecutive Hours, Continuous Positive Airway Pressure (ICD-10-PCS; principal; 2017-08-23)
PROC: 5A1D70Z Performance of Urinary Filtration, Intermittent, Less than 6 Hours Per Day (ICD-10-PCS; 2017-08-23)
DX: J18.9 Pneumonia, unspecified organism (principal); I13.2 Hypertensive heart and chronic kidney disease with heart failure and with stage 5 chronic kidney disease, or end stage renal disease; J96.01 Acute respiratory failure with hypoxia; N17.9 Acute kidney failure, unspecified; L89.221 Pressure ulcer of left hip, stage 1; L89.152 Pressure ulcer of sacral region, stage 2; R64 Cachexia; N18.6 End stage renal disease; G82.20 Paraplegia, unspecified; E87.5 Hyperkalemia; I27.20 Pulmonary hypertension, unspecified; E88.09 Other disorders of plasma-protein metabolism, not elsewhere classified; G62.9 Polyneuropathy, unspecified; I50.22 Chronic systolic (congestive) heart failure; I50.84 End stage heart failure; E87.70 Fluid overload, unspecified; Z99.2 Dependence on renal dialysis; J45.909 Unspecified asthma, uncomplicated; Z90.5 Acquired absence of kidney; J98.6 Disorders of diaphragm; Z68.1 Body mass index [BMI] 19.9 or less, adult; J98.11 Atelectasis; M54.5 Low back pain; D63.1 Anemia in chronic kidney disease; E78.5 Hyperlipidemia, unspecified
CPT/HCPCS: 36415; 71010-TC; 71250-TC; 80048; 80053; 83605; 83735; 84100; 85025; 85027; 85610; 85730; 87040; 87070; 87205; 87633; 87804; 93005; 93010; 93970-TC; 94640; 94660; 94761; 97161-GP; 99284-25; G0480; J0885; J1644